=== PATIENT | male | born 1990 | race Caucasian/White ===

== ENCOUNTER 2021-01-24 23:34 | Inpatient (IN) | payer MEDICAID, SELFPAY ==
[2021-01-24 23:35] VITALS: BP 116/97; PULSE 92; RESP 16; TEMP 36.5; O2SAT 97; BMI 23.6
--- NOTE | 2021-01-24 23:57 | EKG12_ITS ---
Test Reason : Blood Pressure : / mmHG Vent. Rate : 068 BPM Atrial Rate : 068 BPM P-R Int : 178 ms QRS Dur : 118 ms QT Int : 406 ms P-R-T Axes : 070 104 059 degrees QTc Int : 431 ms Normal sinus rhythm with sinus arrhythmia Normal ECG Confirmed by CANDACE SARMIENTO, ESTEFANIA ([id number]), editor & co founder CHRISTINA ETIENNE ([id number]) on 01/27/2021 8:32:51 AM Referred By: HARPREET Confirmed By:ESTEFANIA MARIA MD
[2021-01-25] VITALS (9 sets, daily range): BP systolic 100–126; BP diastolic 68–85; PULSE 59–75; RESP 14–18; TEMP 36.5–37.1; O2SAT 94–99; BMI 19.2
[2021-01-25 00:28] LABS: Absolute Lymphocyte Count 1.48 X10^3/uL (0.83-4.51); Absolute Neutrophil Count 4.4 X10^3/uL (2.0-7.7); Basophil# 0.03 X10^3/uL; Basophil% 0.4 % (0-1); Eosinophil# 0.33 X10^3/uL; Eosinophils% 4.9 % (0-5); Hemoglobin 17.4 g/dL (13.0-16.5); Lymphocyte # 1.48 X10^3/ul (0.83-4.51); Lymphocyte % 22.2 % (19-41); Mean Corp Hgb Conc 34.8 g/dL (32-36); Mean Corpuscular Hgb 31.5 pg (27.0-32.0); Mean Corpuscular Volume 90.6 fL (80-94); Mean Platelet Vol. 9.7 fl (6.2-12.0); Monocyte# 0.46 X10^3/uL; Monocyte% 6.9 % (0-10); NRBC Flagged by Analyzer 0 % (0-5); Neutrophil # 4.36 X10^3/uL (2.7-7.7); Neutrophil % 65.5 % (47-70); Platelet Count 177 K/mm3 (150-450); RBC Distribution Width CV 11.6 % (11.6-14.6); RBC Distribution Width SD 38.7 fl (35.1-43.9); Red Blood Count 5.52 M/mm3 (4.6-6.2); White Blood Count 6.7 K/mm3 (4.4-11.0)
[2021-01-25 00:28] LABS: Amphetamine Urine VISTA NEGATIVE (<1000 ng/mL); Barbiturate Urine VISTA NEGATIVE (< 200 ng/mL); Benzodiazepine Urine VISTA NEGATIVE (< 200 ng/mL); Cocaine Urine VISTA NEGATIVE (< 300 ng/mL); Ecstacy Urine VISTA NEGATIVE (< 500 ng/mL); Methadone Urine VISTA NEGATIVE (< 300 ng/mL); PCP Urine VISTA NEGATIVE (< 25 ng/mL); THC Urine VISTA POSITIVE (< 50 ng/mL); Vista UDS pH Range 5
--- NOTE | 2021-01-25 00:29 | PCM.HP.STD ---
HPI - General General Date of Admission: 01/25/21 Date of Service: 01/25/21 Chief Complaint: Acute EtOH Withdrawal HPI Narrative The patient is a 30 y/o M w/ PMHx: Hepatitis C, Chronic back pain w/ Opiate Abuse Hx purchasing subutex on the stress (Hx IV heroin, clean since 09/2016), EtOH Abuse and BZD abuse (6 beers, 1 pint 80 proof liquor daily in addition to BZD 2-12 pills daily unclear type), Tobacco use who presents to the [facility] on 01/25/21 w/ impending acute EtOH withdrawal, onset starting on day of presentation with decreased intake following last EtOH intake ~ 20 minutes prior to presentation as well as last benzos earlier in the day with onset mild nausea, fatigue. Normally when he de-escalate off of alcohol only he also has nausea, emesis, tremors. Patient interested in attaining sober and clean status. Patient reportedly had recent hospitalization x 3 days with seizure activity, possibly alternate drug than xanax. Patient apparently uses 3-12 BZD pills daily. Work-up in the ED included T 97.7, heart rate 92, BP 116/97, respiratory rate 16, 97% on room air, CBC with WC 6.7, hemoglobin 17.4, platelet 177 without marked shift, CMP with potassium 3.4, glucose 63, total bilirubin 1.60 otherwise unremarkable hepatic profile, UDS with positive cannabis, ethyl alcohol 257. [facility] Medical History Alcohol abuse Benzodiazepine abuse, continuous Chronic neck pain Polysubstance abuse Tobacco use Home Medications gabapentin 800 mg PO TID 01/24/21 [History Last Taken 01/24/21] tizanidine [Zanaflex] 4 mg PO QHS 01/24/21 [History Last Taken 01/23/21] buprenorphine HCl [Subutex] 2 mg SUBLINGUAL DAILY 01/25/21 [History Last Taken 01/24/21] Allergy/AdvReac Type Severity Reaction Status Date / Time No Known Allergies Allergy Verified 01/24/21 23:38 Family History (Updated 01/25/21 @ 02:[address] Cherry Rothman MD) Mother Cancer Lung cancer. Father Cancer Lung cancer, passed. Surgical History History of appendectomy History of fusion of cervical spine Social History (Updated 01/25/21 @ 02:[address] Cherry Rothman MD) household members: significant other Smoking Status: Current every day smoker tobacco type: cigarettes Smoking packs per day: 1 Smoking cigarettes per day: 20.0 alcohol intake: current alcohol intake frequency: 3 or more drinks per day Alcohol type: beer and hard liquor details: Patient daily intake 6-12 beers and 1 pint 80 proof liquor. 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 ROS ROS Narrative Admission Review of Systems: CONSTITUTIONAL: No weight loss, fever, chills, + weakness or fatigue. HEENT: Eyes: No visual loss, blurred vision, double vision or yellow sclerae. Ears, Nose, Throat: No hearing loss, sneezing, congestion, runny nose or sore throat. SKIN: No rash or itching, lesions, wounds. CARDIOVASCULAR: No chest pain, chest pressure or chest discomfort, palpitations, edema, orthopnea, syncopal events. RESPIRATORY: No shortness of breath, cough or sputum, wheezing, hemoptysis. GASTROINTESTINAL: + anorexia, nausea, No vomiting or diarrhea, abdominal pain, melena, BRBPR. GENITOURINARY: No dysuria, frequency, urgency or retention. NEUROLOGICAL: No headache, dizziness, syncope, paralysis, ataxia, numbness or tingling in the extremities, focal weakness, change in bowel or bladder control, seizure. MUSCULOSKELETAL: + muscle, back pain, joint pain or stiffness. HEMATOLOGIC: No anemia, bleeding or bruising. LYMPHATICS: No enlarged nodes. No history of splenectomy. PSYCHIATRIC: No history of depression or anxiety. ENDOCRINOLOGIC: No reports of sweating, cold or heat intolerance. No polyuria or polydipsia. ALLERGIES: No history of asthma, hives, eczema or rhinitis. Vital Signs Vital Signs Vital Signs: 01/24/21 23:35 Temperature 97.7 F L Temperature Source Temporal Pulse Rate 92 Respiratory Rate 16 Blood Pressure 116/97 H Blood Pressure Mean 103 Pulse Ox 97 Oxygen Delivery Method Room Air Weight Weight: 155 lb Body Mass Index (BMI) 23.6 Physical Exam Narrative Physical Examination: General: Awake, alert, oriented x 3 and cooperative, seated upright in the ED bed, extremely fatigued, no acute distress. Skin: Normal color, normal turgor, no icterus, no cyanosis. HEENT: AT/NC, EOMI, PERRLA, dry MM, no carotid bruits or JVD noted. Lungs: Diminished breath sounds, greater bases, mildly decreased effort, no rales, ronchi or wheezing. Heart: Regular rate and rhythm; no gallop, rub audible. Abdomen: Soft, NTTP, ND, mildly hyperactive BS, no HSM. Extremities: No cyanosis, clubbing, or edema. Neurological: Patient awake, alert, oriented as noted, cognitive function appears baseline intact however notably fatigued; pupils equally reactive to light and accommodation, cranial nerves II-XII grossly normal, moving all 4 extremities, no focal deficits, strength mildly global decreased. Psychiatric: Affect appears fatigued, no acute evidence of depressive or anxiety feelings. Results Lab / Micro Data Result Diagrams: 01/25/21 00:10 01/25/21 00:10 Labs: Laboratory Results - last 24 hr 01/24/21 23:43: Urine Opiates Screen NEGATIVE, Urine Methadone Screen NEGATIVE, Ur Barbiturates Screen NEGATIVE, Ur Phencyclidine Scrn NEGATIVE, Ur Amphetamines Screen NEGATIVE, U Methamphetamin-MDMA NEGATIVE, U Benzodiazepines Scrn NEGATIVE, Urine Cocaine Screen NEGATIVE, U Cannabinoids Screen POSITIVE H, Ur Drug Screen Comment 01/25/21 00:10: WBC 6.7, RBC 5.52, Hgb 17.4 H, Hct 50.0, MCV 90.6, MCH 31.5, MCHC 34.8, RDW Std Deviation 38.7, RDW Coeff of Estuardo 11.6, Plt Count 177, MPV 9.7, Immature Gran % (Auto) 0.100, Neut % (Auto) 65.5, Lymph % (Auto) 22.2, [place] % (Auto) 6.9, Eos % (Auto) 4.9, Baso % (Auto) 0.4, Absolute Neuts (auto) 4.4, Absolute Lymphs (auto) 1.48, Nucleated RBC % 0 Assessment & Plan Assessment/Plan (1) Alcohol withdrawal: QUALIFIERS: Complication of substance-induced condition: uncomplicated Qualified Code(s): F10.230 - Alcohol dependence with withdrawal, uncomplicated (2) Benzodiazepine withdrawal: QUALIFIERS: Complication of substance-induced condition: uncomplicated Qualified Code(s): F13.230 - Sedative, hypnotic or anxiolytic dependence with withdrawal, uncomplicated PLAN: The patient is a 30 y/o M w/ PMHx: Hepatitis C, Chronic back pain w/ Opiate Abuse Hx purchasing subutex on the stress (Hx IV heroin, clean since 09/2016), EtOH Abuse and BZD abuse (6 beers, 1 pint 80 proof liquor daily in addition to BZD 2-12 pills daily unclear type), Tobacco use who presents to the [facility] on 01/25/21 w/ impending EtOH withdrawal and BZD withdrawal. 1. Impending Acute EtOH and BZD Withdrawal: Will admit to [facility], routine labs obtained in the ED upon presentation. Given interest in sobriety/clean status, will initiate and continue on protocol with taper course of ativan given concurrent BZD abuse history, scheduled gabapentin per home regimen, as needed Catapres, Bentyl, Vistaril, IV fluids, IV antiemetics, Tylenol as needed for pain. Will consult Case management for assistance for transition to next level of rehabilitation care. Mag, phos pending. Maintain on CIWA protocol concurrently. Patient will need consultation Tuesday with Dr. Horan given concurrent BZD abuse as will need prolonged taper regimen. 2. Chronic back pain with polysubstance abuse history: We will continue patient xanaflex q HS and gabapentin home regimen given this is prescribed. He does note have an active rx for subutex but has been purchasing off the street. Discussed options and at this time patient amenable to be initiated and continued on protocol with tapering course of Subutex given this status. 3. Tobacco Abuse: Encouraged cessation, inpatient consultation per RT, NR if desired. 4. DVT prophylaxis: Low risk, encourage ambulation. Charges/Coding Visit Charges Inpatient E&M: 82860 Init Hosp L3
--- NOTE | 2021-01-25 00:47 | EX.ED.SAOD ---
HPI History of Present Illness Chief Complaint: Substance Abuse Informant: patient Narrative Narrative: Patient is a 30-year-old male presenting for detox. Patient states she was late requesting detox from alcohol as well as Xanax. Patient drinks 6 pack of beer and a pint of 80 proof liquor daily. Last drink was about 20 minutes prior to arrival. He also takes 3-12 Xanax a day. He states he is not sure what he is been taking lately however because he had an overdose in [place], where he lives, and his urine drug screen was negative for Xanax. He states they are some type of tranquilizer. He also smokes marijuana regularly. He does use Subutex which he gets from the streets and does not have a prescription for. His last detox was 2 years ago. He has remote history of hepatitis C and IV drug use of is not used IV drugs for the past 4 years. Patient did present with his girlfriend for detox as well. No other complaints. Notes he has chronic neck pain which is unchanged. PFSH PFSH Medical History Alcohol abuse Benzodiazepine abuse, continuous Chronic neck pain Polysubstance abuse Tobacco use Home Medications gabapentin 800 mg PO TID 01/24/21 [History Last Taken 01/24/21] tizanidine [Zanaflex] 4 mg PO QHS 01/24/21 [History Last Taken 01/23/21] buprenorphine HCl [Subutex] 2 mg SUBLINGUAL DAILY 01/25/21 [History Last Taken 01/24/21] Allergy/AdvReac Type Severity Reaction Status Date / Time No Known Allergies Allergy Verified 01/24/21 23:38 Family History (Updated 01/25/21 @ 02:[address] Cherry Rothman MD) Mother Cancer Lung cancer. Father Cancer Lung cancer, passed. Surgical History History of appendectomy History of fusion of cervical spine Social History (Updated 01/25/21 @ 02:[address] Cherry Rothman MD) household members: significant other Smoking Status: Current every day smoker tobacco type: cigarettes Smoking packs per day: 1 Smoking cigarettes per day: 20.0 alcohol intake: current alcohol intake frequency: 3 or more drinks per day Alcohol type: beer and hard liquor details: Patient daily intake 6-12 beers and 1 pint 80 proof liquor. 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 ROS ROS ED Constitutional Constitutional ED: Denies chills, fever(s) or malaise Eyes Eyes: Denies blurry vision or loss of vision ENT ENT ED: Denies rhinorrhea or sore throat Cardiovascular Cardiovascular: Denies chest pain or dizziness Respiratory/Chest Respiratory/Chest: Denies cough or dyspnea Gastrointestinal Gastrointestinal: Denies nausea or vomiting Genitourinary Genitourinary ED: Denies dysuria or hematuria Musculoskeletal Musculoskeletal: Reports back pain and neck pain; Denies arthralgias or myalgias Integumentary Denies rash or wounds Neurologic Neurologic: Denies focal weakness or headache(s) Psychiatric Psychiatric: Reports other Details: Polysubstance abuse ; Denies anxiety, behavioral changes or depression EXAM Physical Exam Const Vital Signs: 01/24/21 23:35 Temperature 97.7 F L Temperature Source Temporal Pulse Rate 92 Respiratory Rate 16 Blood Pressure 116/97 H Blood Pressure Mean 103 Pulse Ox 97 Oxygen Delivery Method Room Air Positive well nourished, well developed and no apparent distress General Appearance ED: well developed HEENT Reports normocephalic atraumatic Nose: no nasal discharge External Ear: external ears normal Mouth ED: Yes moist mucous membranes normal Eyes PERRL and EOMs intact bilaterally Neck full ROM and no meningeal signs Chest Wall inspection of chest normal Resp normal respiratory effort and normal air movement Cardio regular rate and regular rhythm GI normal to inspection, nondistended, normoactive bowel sounds, soft to palpation, non-tender and non-distended Extremity normal to inspection and full ROM General Extremety ED: Negative for edema or tenderness General Extremity: Negative for edema Neuro oriented x3 and no focal motor deficits Neuro Narrative: Speech is slightly slurred. Sensorium / Orientation: alert Psych mental status grossly normal and thought process normal Skin no rashes or lesions noted and no wounds Lesions: no lesions Rashes: no rashes MDM MDM MDM Narrative Medical decision making narrative: Patient is evaluated for request of detox. He does appear mildly intoxicated with alcohol on my evaluation. He also is requesting detox from Xanax however it is not clear if he is actually been taking it. His benzodiazepine screen is negative. He is getting him off the street as well as Subutex. Patient is admitted for inpatient detox. He has no active signs of withdrawal at this time and I do not think requires any emergent medication in the emergency room. Lab Data Attestation: I reviewed the patient's lab results. Labs: Laboratory Results - last 24 hr 01/24/21 01/25/21 01/25/21 23:43 00:10 00:10 WBC 6.7 RBC 5.52 Hgb 17.4 H Hct 50.0 MCV 90.6 MCH 31.5 MCHC 34.8 RDW Std Deviation 38.7 RDW Coeff of Estuardo 11.6 Plt Count 177 MPV 9.7 Immature Gran % (Auto) 0.100 Neut % (Auto) 65.5 Lymph % (Auto) 22.2 [place] % (Auto) 6.9 Eos % (Auto) 4.9 Baso % (Auto) 0.4 Absolute Neuts (auto) 4.4 Absolute Lymphs (auto) 1.48 Nucleated RBC % 0 Sodium 140 Potassium 3.4 L Chloride 103 Carbon Dioxide 27.0 Anion Gap 10 BUN 17 Creatinine 1.28 Estim Creat Clear Calc 80.90 Est GFR (MDRD) Af Amer 84 Est GFR (MDRD) Non-Af 70 BUN/Creatinine Ratio 13.3 Glucose 63 L Calcium 8.9 Phosphorus Magnesium Total Bilirubin 1.60 H AST 19 ALT 29 Alkaline Phosphatase 80 Total Protein 8.0 Albumin 4.1 Globulin 3.9 Albumin/Globulin Ratio 1.1 Urine Opiates Screen NEGATIVE Urine Methadone Screen NEGATIVE Ur Barbiturates Screen NEGATIVE Ur Phencyclidine Scrn NEGATIVE Ur Amphetamines Screen NEGATIVE U Methamphetamin-MDMA NEGATIVE U Benzodiazepines Scrn NEGATIVE Urine Cocaine Screen NEGATIVE U Cannabinoids Screen POSITIVE H Ur Drug Screen Comment Ethyl Alcohol HIV 1&2 Antibody 01/25/21 01/25/21 01/25/21 00:10 00:10 00:10 WBC RBC Hgb Hct MCV MCH MCHC RDW Std Deviation RDW Coeff of Estuardo Plt Count MPV Immature Gran % (Auto) Neut % (Auto) Lymph % (Auto) [place] % (Auto) Eos % (Auto) Baso % (Auto) Absolute Neuts (auto) Absolute Lymphs (auto) Nucleated RBC % Sodium Potassium Chloride Carbon Dioxide Anion Gap BUN Creatinine Estim Creat Clear Calc Est GFR (MDRD) Af Amer Est GFR (MDRD) Non-Af BUN/Creatinine Ratio Glucose Calcium Phosphorus 3.6 Magnesium 2.2 Total Bilirubin AST ALT Alkaline Phosphatase Total Protein Albumin Globulin Albumin/Globulin Ratio Urine Opiates Screen Urine Methadone Screen Ur Barbiturates Screen Ur Phencyclidine Scrn Ur Amphetamines Screen U Methamphetamin-MDMA U Benzodiazepines Scrn Urine Cocaine Screen U Cannabinoids Screen Ur Drug Screen Comment Ethyl Alcohol 257.0 HIV 1&2 Antibody Non-Reactive Rhythm Strip Rhythm Strip: Sinus Rhythm Rate: 68 Ectopy: None EKG Initial EKG: Attestation: I personally reviewed and interpreted this EKG as follows: Interpretation: Sinus Rhythm Comments: Normal sinus rhythm at a rate of 68 Normal axis Normal intervals Normal ST segments Discharge Plan Dx/Rx/DC Orders Clinical Impression: Alcohol withdrawal, Benzodiazepine withdrawal Disposition Disposition: Acute Care Hospital [facility] Discharge Date/Time: 01/25/21 01:49
[2021-01-25 00:50] LABS: ALB/GLOB Ratio 1.1 RATIO (0.9-2.4); AST(SGOT) 19 U/L (15-37); Alanine Aminotransfer ALT/SGPT 29 U/L (16-61); Albumin, Serum 4.1 g/dL (3.2-5.0); Alkaline Phosphatase 80 U/L (45-117); Anion Gap 10 (5-15); BUN 17 mg/dL (7-18); BUN/Creat Ratio 13.3 RATIO (10-20); Calcium,Total 8.9 mg/dL (8.5-10.1); Chloride 103 mmol/L (98-107); Creatinine, Serum 1.28 mg/dL (0.70-1.30); EST Glomerular Filtration Rate 70 mL/min (>60); Est Glom Filt Rate - Afr Amer 84 mL/min (>60); Globulin 3.9 g/dL (2.2-4.2); Glucose 63 mg/dL (74-106); Potassium 3.4 mmol/L (3.5-5.1); Sodium Level 140 mmol/L (136-145)
[2021-01-25 01:21] LABS: Magnesium 2.2 mg/dL (1.6-2.6); Phosphorus 3.6 mg/dL (2.5-4.9)
--- NOTE | 2021-01-25 01:28 | ED.RN ---
180 called and made aware of patients being admitted
[2021-01-25 01:52] LABS: HIV - WCH Non-Reactive (Nonreactive)
[2021-01-25] MEDS: Potassium Chloride Oral Tablet 20 MEQ 40 MEQ PO (02:36)
[2021-01-25] MEDS: 0.9% Saline Lock 10 ML Syringe IV (02:36)
[2021-01-25] MEDS: LORazepam 1 MG Tablet 0.5 MG PO ×6 (02:36→22:16)
[2021-01-25] MEDS: Gabapentin 800 MG Tablet PO ×3 (02:36→22:16)
[2021-01-25] MEDS: Lactated Ringers 1,000 ML 125 ML IV (02:36)
--- NOTE | 2021-01-25 04:26 | PCS.PANDOC ---
PANDEMIC DOCUMENTATION INITIATED: Date: 01/12/2021 Time: 190
[2021-01-25] MEDS: Folic Acid 1 MG Tablet PO (08:14)
[2021-01-25] MEDS: Thiamine Hydrochloride 100 MG Tablet PO (08:14)
--- NOTE | 2021-01-25 12:54 | PCM.HOSP.N ---
Hospitalist Note The patient is admitted for medical stabilization for acute alcohol withdrawal syndrome. Patient also has history of chronic benzodiazepine use for last 3 months about Xanax 5 to 15 mg daily which is over the street, contaminated. Quit IV fentanyl in 2017 Patient is having mild tremors anxiety and restlessness. On buprenorphine and other supportive medications.
[2021-01-25] MEDS: Ibuprofen 600 MG Tablet PO ×2 (13:04→22:17)
[2021-01-25] MEDS: Methocarbamol 750 MG Tablet 1500 MG PO (14:16)
[2021-01-25] MEDS: hydrOXYzine PAM 25 MG Capsule 50 MG PO (14:16)
[2021-01-25] MEDS: Buprenorphine HCl 2 MG TAB.SUBL SL (19:10)
[2021-01-25] MEDS: Dicyclomine 10 MG Capsule 20 MG PO (22:16)
[2021-01-25] MEDS: tiZANidine HCl 2 MG Tablet 4 MG PO (22:16)
[2021-01-25] MEDS: Senna Tablet 2 TABLET PO (22:16)
[2021-01-26] VITALS (9 sets, daily range): BP systolic 102–119; BP diastolic 59–73; PULSE 47–72; RESP 14–16; TEMP 36.6–37; O2SAT 95–99
[2021-01-26] MEDS: LORazepam 1 MG Tablet 0.5 MG PO ×6 (03:00→22:24)
[2021-01-26] MEDS: Buprenorphine HCl 2 MG TAB.SUBL SL ×3 (03:00→18:27)
[2021-01-26] MEDS: Gabapentin 800 MG Tablet PO ×3 (06:02→22:24)
--- NOTE | 2021-01-26 08:55 | PN.HOSP_ITS ---
Objective Data Objective Data Patient was seen and examined. He complains of low back pain. This is not new. Denies any other complaints. Vital Signs: Vital Signs Temp Pulse Resp BP Pulse Ox 98.1 F 72 16 119/73 98 01/26/21 08:52 01/26/21 08:52 01/26/21 08:52 01/26/21 08:52 01/26/21 08:52 Oxygen Delivery Method Room Air Weight: 60.7 kg Body Mass Index (BMI) 19.2 Intake & Output: Intake and Output for Last 24 Hours 01/24/21 01/25/21 01/26/21 23:59 23:59 23:59 Intake Total 3600 / 3600 Balance 3600 / 3600 Medical Nutrition Assessment Dietitian: Malnutrition Criteria Met Start: 01/25/21 1 5:03 Freq: Status: Active Protocol: Document 01/25/21 15:04 RMA (Rec: 01/25/21 15:04 RMA [id number]) Nutrition Malnutrition Evidence of Malnutrition Exists Yes Malnutrition (severe): Social/Behavioral/ Environmental Evidenced By Suboptimal Energy Intake ( Severe),Weight Loss (Severe), Physical Changes (Moderate) Clinical Problem Chronic Disease or Condition Related Malnutrition Etiology Severe protein-calorie malnutrition in the context of social circumstance/ polysubstance abuse related to inadequate oral/energy intake Signs/Symptoms as evidenced by ~24% wt loss x past 1-2 years, 7-8% wt loss x past 1-2 months, ongoing poor intake meeting less than 50% estimated nutrition needs x past 1-3 months, need for ONS and visible signs of moderate muscle and fat wasting in the face, neck, arms and upper body. Status Active Problem Recommendation Dietitian Recommendations/Changes Continue Regular diet w/ 3 snacks per day as tolerated. Will add 240ml ensure enlive BID w/ breakfast and dinner for additional 700 calories and 40gm protein if consumed. Lab / Micro Data Result Diagrams: 01/25/21 00:10 01/25/21 00:10 Micro: Microbiology 01/24/21 23:10 Nasal Secretion SARS-CoV-2 Antigen (Rapid) - Final Rhythm Strip Rhythm Strip: Sinus Rhythm Rate: 68 Ectopy: None Physical Exam Narrative Physical exam: General: Alert, Oriented x3, Cooperative, No apparent distress, Well developed HEENT: Atraumatic Oral: Moist Mucosa Neck: Supple Lungs: Clear to auscultation Cardiovascular: HS I+II, regular, no murmurs Abdomen: Bowel Sounds Present, Soft, Non Tender Extremities: No edema Assessment & Plan Assessment/Plan (1) Alcohol withdrawal: QUALIFIERS: Complication of substance-induced condition: uncomplicated Qualified Code(s): F10.230 - Alcohol dependence with withdrawal, uncomplicated (2) Benzodiazepine withdrawal: QUALIFIERS: Complication of substance-induced condition: uncomplicated Qualified Code(s): F13.230 - Sedative, hypnotic or anxiolytic dependence with withdrawal, uncomplicated PLAN: 1. Acute alcohol withdrawal, continue on the Ativan withdrawal protocol 2. Acute opiate withdrawal, continue buprenorphine 3. Nicotine dependence, on replacement, advised to quit 4. Chronic back pain, continue on Zanaflex, courage to follow-up with pain management/primary care doctor for MRI of the low back Charges/Coding Visit Charges Inpatient E&M: 16067 Subs Hosp L2
[2021-01-26] MEDS: Thiamine Hydrochloride 100 MG Tablet PO (09:04)
[2021-01-26] MEDS: Ondansetron 8 MG Tablet PO (09:04)
[2021-01-26] MEDS: Folic Acid 1 MG Tablet PO (09:04)
[2021-01-26] MEDS: Dicyclomine 10 MG Capsule 20 MG PO ×2 (09:05→18:28)
[2021-01-26] MEDS: hydrOXYzine PAM 25 MG Capsule 50 MG PO ×3 (09:05→18:28)
[2021-01-26] MEDS: Methocarbamol 750 MG Tablet 1500 MG PO ×2 (09:05→18:28)
[2021-01-26] MEDS: Ibuprofen 600 MG Tablet PO ×2 (09:07→18:28)
--- NOTE | 2021-01-26 11:30 | ADDICTION ---
TW met with PT to complete the ASAM, AUDIT, DUDIT, MSE, Discharge plan and fill out ROIs. PT was alert and oriented x4, has no current/past SI/HI and was a willing and engaged participant. PT requested f/u appointments in his [place] ([facility]) for both addiction treatment and primary care. TW called several options for treatment, reviewed them with client, then had ROIs signed to make appointments. F/u appointments are at [facility] 01/28/2021 at 1PM and at [facility] for primary care with Dr. Hill on 01/29/2021 at 11:30AM. No transportation needs necessary. PT will need to d/c in the morning of 01/28 due to have a [address] to his 1PM appoinment.
--- NOTE | 2021-01-26 12:20 | CASEMGMT ---
RN CM in to pt room to provide a pamphlet of local healthcare directory per request of physician. Pt thankful and states that someone who was just in found his family doctor that he had as a little boy and the PCP is still practicing. Pt did still take pamphlet. Denies further needs.
[2021-01-26] MEDS: Acetaminophen 325 MG Tablet 650 MG PO (22:23)
[2021-01-26] MEDS: tiZANidine HCl 2 MG Tablet 4 MG PO (22:24)
[2021-01-27] VITALS (9 sets, daily range): BP systolic 90–119; BP diastolic 53–70; PULSE 50–70; RESP 12–16; TEMP 36.4–37.1; O2SAT 93–96
[2021-01-27] MEDS: LORazepam 1 MG Tablet 0.5 MG PO ×5 (02:26→22:35)
[2021-01-27] MEDS: Buprenorphine HCl 2 MG TAB.SUBL SL ×2 (02:27→18:52)
[2021-01-27] MEDS: Ibuprofen 600 MG Tablet PO ×2 (02:27→14:37)
[2021-01-27] MEDS: Gabapentin 800 MG Tablet PO ×3 (06:24→22:34)
[2021-01-27] MEDS: Folic Acid 1 MG Tablet PO (08:13)
[2021-01-27] MEDS: Thiamine Hydrochloride 100 MG Tablet PO (08:13)
--- NOTE | 2021-01-27 09:51 | PN.HOSP_ITS ---
Subjective Subjective Patient was seen and examined. No acute events overnight. Objective Data Objective Data Vital Signs: Vital Signs Temp Pulse Resp BP Pulse Ox 97.6 F L 70 12 100/57 L 93 01/27/21 04:19 01/27/21 08:06 01/27/21 04:19 01/27/21 04:19 01/27/21 07:39 Oxygen Delivery Method Room Air Weight: 60.7 kg Body Mass Index (BMI) 19.2 Intake & Output: Intake and Output for Last 24 Hours 01/25/21 01/26/21 01/27/21 23:59 23:59 23:59 Intake Total 3600 / 3600 Balance 3600 / 3600 Medical Nutrition Assessment Dietitian: Malnutrition Criteria Met Start: 01/25/21 15:03 Freq: Status: Active Protocol: Document 01/25/21 15:04 RMA (Rec: 01/25/21 15:04 RMA [id number]) Nutrition Malnutrition Evidence of Malnutrition Exists Yes Malnutrition (severe): Social/Behavioral/ Environmental Evidenced By Suboptimal Energy Intake ( Severe),Weight Loss (Severe), Physical Changes (Moderate) Clinical Problem Chronic Disease or Condition Related Malnutrition Etiology Severe protein-calorie malnutrition in the context of social circumstance/ polysubstance abuse related to inadequate oral/energy intake Signs/Symptoms as evidenced by ~24% wt loss x past 1-2 years, 7-8% wt loss x past 1-2 months, ongoing poor intake meeting less than 50% estimated nutrition needs x past 1-3 months, need for ONS and visible signs of moderate muscle and fat wasting in the face, neck, arms and upper body. Status Active Problem Recommendation Dietitian Recommendations/Changes Continue Regular diet w/ 3 snacks per day as tolerated. Will add 240ml ensure enlive BID w/ breakfast and dinner for additional 700 calories and 40gm protein if consumed. Lab / Micro Data Result Diagrams: 01/25/21 00:10 01/25/21 00:10 Micro: Microbiology 01/24/21 23:10 Nasal Secretion SARS-CoV-2 Antigen (Rapid) - Final Rhythm Strip Rhythm Strip: Sinus Rhythm Rate: 68 Ectopy: None Physical Exam Narrative Physical exam: General: Alert, Oriented x3, Cooperative, No apparent distress, Well developed HEENT: Atraumatic Oral: Moist Mucosa Neck: Supple Lungs: Clear to auscultation Cardiovascular: HS I+II, regular, no murmurs Abdomen: Bowel Sounds Present, Soft, Non Tender Extremities: No edema Assessment & Plan Assessment/Plan (1) Alcohol withdrawal: QUALIFIERS: Complication of substance-induced condition: uncomplicated Qualified Code(s): F10.230 - Alcohol dependence with withdrawal, uncomplicated (2) Benzodiazepine withdrawal: QUALIFIERS: Complication of substance-induced condition: uncom plicated Qualified Code(s): F13.230 - Sedative, hypnotic or anxiolytic dep endence with withdrawal, uncomplicated PLAN: 1. Acute alcohol withdrawal, continue on the Ativan withdrawal protocol 2. Acute opiate withdrawal, continue buprenorphine 3. Nicotine dependence, on replacement, advised to quit 4. Chronic back pain, continue on Zanaflex, courage to follow-up with pain management/primary care doctor for MRI of the low back Charges/Coding Visit Charges Inpatient E&M: 95447 Subs Hosp L2
[2021-01-27 11:53] LABS: AST(SGOT) 24 U/L (15-37); Alanine Aminotransfer ALT/SGPT 35 U/L (16-61); Albumin, Serum 3.3 g/dL (3.2-5.0); Alkaline Phosphatase 66 U/L (45-117); Anion Gap 1 (5-15); BUN 21 mg/dL (7-18); BUN/Creat Ratio 16.5 RATIO (10-20); Calcium,Total 8.7 mg/dL (8.5-10.1); Chloride 104 mmol/L (98-107); Creatinine, Serum 1.27 mg/dL (0.70-1.30); EST Glomerular Filtration Rate 70 mL/min (>60); Est Glom Filt Rate - Afr Amer 85 mL/min (>60); Estimated Creatinine Clearance 72.36 ml/min; Globulin 3.3 g/dL (2.2-4.2); Glucose 104 mg/dL (74-106); Potassium 3.7 mmol/L (3.5-5.1); Protein, Total 6.6 g/dL (6.4-8.2); Sodium Level 138 mmol/L (136-145)
[2021-01-27] MEDS: hydrOXYzine PAM 25 MG Capsule 50 MG PO (14:37)
[2021-01-27] MEDS: Ondansetron 8 MG Tablet PO (14:37)
[2021-01-27] MEDS: tiZANidine HCl 2 MG Tablet 4 MG PO (22:35)
[2021-01-27 22:44] LABS: HEPATITIS B SURFACE AG Negative (Negative); Hepatitis B Core Ab Total Negative (Negative); Hepatitis C Ab 0.2 s/co ratio (0.0-0.9)
[2021-01-27 22:45] LABS: Hep B Surface Antibodies Reactive (.)
[2021-01-28 02:30] VITALS: BP 107/57; PULSE 44; RESP 12; TEMP 37; O2SAT 96
[2021-01-28] MEDS: LORazepam 1 MG Tablet 0.5 MG PO (04:15)
[2021-01-28] MEDS: Buprenorphine HCl 2 MG TAB.SUBL SL (06:21)
[2021-01-28] MEDS: Gabapentin 800 MG Tablet PO (06:21)
[2021-01-28 08:06] VITALS: PULSE 60
[2021-01-28 08:08] VITALS: BP 103/72; PULSE 50; RESP 16; TEMP 36.6; O2SAT 94
[2021-01-28 08:15] VITALS: O2SAT 95
[2021-01-28] MEDS: Thiamine Hydrochloride 100 MG Tablet PO (08:16)
[2021-01-28] MEDS: Folic Acid 1 MG Tablet PO (08:16)
--- NOTE | 2021-01-28 08:58 | PCM.DC ---
Discharge Instructions Diet Discharge Diet: No restrictions Activity Discharge Activity: Return to Normal Activity Follow Up Care Test Results: Test results from this visit will be discussed in further detail at your follow-up appointment, if applicable. Discharge Plan Admission Admit Date/Time: 01/25/21 00:54 Primary Reason for Your Visit: Acute opioid withdrawal Attending Provider: Tiffani Luna Primary Care Provider: Beatriz Physician,No Primary Instructions Additional Instructions / Restrictions: You are strongly advised to continue to avoid use of opioids. You are also advised to stop smoking. Follow-up with your outpatient drug rehab program as scheduled. Discharge Orders/Prescriptions Prescriptions: New folic acid 1 mg Tablet 1 mg PO DAILY@0800 30 Days Qty: 30 RF: 0 Continued tizanidine [Zanaflex] 4 mg Tablet 4 mg PO QHS RF: 0 gabapentin 800 mg Tablet 800 mg PO TID RF: 0 Discontinued buprenorphine HCl [Subutex] 2 mg Tablet, Sublingual 2 mg SUBLINGUAL DAILY RF: 0 Referrals / Follow Up: Care Physician,No Primary [Primary Care Provider] - Within 2 Weeks Disposition Disposition (needs filled in before D/C Order can be placed): Home, Self Care
--- NOTE | 2021-01-28 09:02 | PCM.DC.SUM ---
Providers Date of Admission: 01/25/21 Date of Discharge: 01/28/21 Primary Care Physician: No Primary Care Phys Reason For Visit: ACUTE ETOH / BZD OPIATE WITHDRAWAL Diagnosis Discharge Diagnosis (1) Alcohol withdrawal: Status: Resolved Code(s): F10.239 - Alcohol dependence with withdrawal, unspecified Qualifiers: Complication of substance-induced condition: uncomplicated Qualified Code(s): F10.230 - Alcohol dependence with withdrawal, uncomplicated (2) Benzodiazepine withdrawal: Status: Resolved Code(s): F13.239 - Sedative, hypnotic or anxiolytic dependence with withdrawal, unspecified Qualifiers: Complication of substance-induced condition: uncomplicated Qualified Code(s): F13.230 - Sedative, hypnotic or anxiolytic dependence with withdrawal, uncomplicated (3) Severe protein-calorie malnutrition: Status: Chronic Code(s): E43 - Unspecified severe protein-calorie malnutrition Medications at Discharge Home Medications gabapentin 800 mg PO TID 01/24/21 tizanidine [Zanaflex] 4 mg PO QHS 01/24/21 folic acid 1 mg PO DAILY@0800 30 Days #30 tab 01/28/21 Hospital Course Operations None Procedures None Summary of Care Provided Minutes Spent on Discharge: 25 Hospital Course: 30y/o male with past medical history of hep C, chronic back pain, history of opioid abuse, who buys Subutex from the street, by 6 PSA 1.84 of liquor daily, who comes in requesting for medical stabilization from acute opioid and alcohol withdrawal. Patient was admitted to the MedSurg floor managed on both opioid and alcohol withdrawal protocol. There were no acute events. Seen by the behavioral counselor. He will follow-up in the outpatient on discharge. Physical Exam Narrative Physical exam: General: Alert, Oriented x3, Cooperative, No apparent distress, Well developed HEENT: Atraumatic Oral: Moist Mucosa Neck: Supple Lungs: Clear to auscultation Cardiovascular: HS I+II, regular, no murmurs Abdomen: Bowel Sounds Present, Soft, Non Tender Extremities: No edema Medical Records Data Medical Nutrition Assessment Dietitian: Malnutrition Criteria Met Start: 01/25/21 15:03 Freq: Status: Active Protocol: Document 01/25/21 15:04 RMA (Rec: 01/25/21 15:04 RMA [id number]) Nutrition Malnutrition Evidence of Malnutrition Exists Yes Malnutrition (severe): Social/Behavioral/ Environmental Evidenced By Suboptimal Energy Intake ( Severe),Weight Loss (Severe), Physical Changes (Moderate) Clinical Problem Chronic Disease or Condition Related Malnutrition Etiology Severe protein-calorie malnutrition in the context of social circumstance/ polysubstance abuse related to inadequate oral/energy intake Signs/Symptoms as evidenced by ~24% wt loss x past 1-2 years, 7-8% wt loss x past 1-2 months, ongoing poor intake meeting less than 50% estimated nutrition needs x past 1-3 months, need for ONS and visible signs of moderate muscle and fat wasting in the face, neck, arms and upper body. Status Active Problem Recommendation Dietitian Recommendations/Changes Continue Regular diet w/ 3 snacks per day as tolerated. Will add 240ml ensure enlive BID w/ breakfast and dinner for additional 700 calories and 40gm protein if consumed. Weight / BMI Weight Weight: 60.7 kg Body Mass Index (BMI) 19.2 ABG / Lab / Microbiology Data Result Diagrams: 01/25/21 00:10 01/27/21 11:14 Laboratory: Laboratory Results - last 24 hr 01/25/21 00:10: Hep Bs Antigen Negative, Hep Bs Antibody Reactive, Hep B Core Total Ab Negative, Hepatitis C Antibody 0.2, Hep C Ab Comment Comment 01/27/21 11:14: Sodium 138, Potassium 3.7, Chloride 104, Carbon Dioxide 33.0 H, Anion Gap 1 L, BUN 21 H, Creatinine 1.27, Estim Creat Clear Calc 72.36, Est GFR (MDRD) Af Amer 85, Est GFR (MDRD) Non-Af 70, BUN/Creatinine Ratio 16.5, Glucose 104, Calcium 8.7, Total Bilirubin 1.40 H, AST 24, ALT 35, Alkaline Phosphatase 66, Total Protein 6.6, Albumin 3.3, Globulin 3.3, Albumin/Globulin Ratio 1.0 Microbiology: Microbiology 01/24/21 23:10 Nasal Secretion SARS-CoV-2 Antigen (Rapid) - Final D/C Instructions Discharge Diet: No restrictions Meaningful Use Info Meaningful Use Diagnoses (Choose all that apply): None applicable Discharge Plan Admission Admit Date/Time: 01/25/21 00:54 Primary Reason for Your Visit: Acute alcohol/opioid withdrawal Attending Provider: Tiffani Luna Primary Care Provider: Care Physician,No Primary Instructions Additional Instructions / Restrictions: You are strongly advised to continue to avoid use of opioids. You are also advised to stop smoking. Follow-up with your outpatient drug rehab program as scheduled. Discharge Orders/Prescriptions Prescriptions: New folic acid 1 mg Tablet 1 mg PO DAILY@0800 30 Days Qty: 30 RF: 0 Continued tizanidine [Zanaflex] 4 mg Tablet 4 mg PO QHS RF: 0 gabapentin 800 mg Tablet 800 mg PO TID RF: 0 Discontinued buprenorphine HCl [Subutex] 2 mg Tablet, Sublingual 2 mg SUBLINGUAL DAILY RF: 0 Referrals / Follow Up: Care Physician,No Primary [Primary Care Provider] - Within 2 Weeks Disposition Disposition (needs filled in before D/C Order can be placed): Home, Self Care Charges/Coding Visit Charges Inpatient E&M: 85832 Disch Hosp
== END 2021-01-28 10:40 | disposition home or self-care (01) | DRG 775 ==
LOC: ED 01-25 00:56 → MS3 01-25 01:46
PROVIDERS: Admitting Provider Family Medicine; Emergency Provider Emergency Medicine; Visit Provider Internal Medicine
DX: F10.230 Alcohol dependence with withdrawal, uncomplicated (principal); F13.230 Sedative, hypnotic or anxiolytic dependence with withdrawal, uncomplicated; E43 Unspecified severe protein-calorie malnutrition; Z68.1 Body mass index [BMI] 19.9 or less, adult; F17.210 Nicotine dependence, cigarettes, uncomplicated; G89.29 Other chronic pain; M54.5 Low back pain
CPT/HCPCS: 36415; 80053; 80307; 82077; 83735; 84100; 85025; 86703; 86704; 86705; 86706; 86707; 86803; 87340; 87350; 87426; 93005; 99285; 99406; J7120; A4216

== ENCOUNTER 2022-04-19 12:09 | Observation (INO) | payer MEDICAID, SELFPAY ==
[2022-04-19 12:10] VITALS: BP 143/84; PULSE 80; RESP 18; TEMP 36.8; O2SAT 98; BMI 21.2
[2022-04-19 13:50] LABS: Amphetamine Urine VISTA NEGATIVE (<1000 ng/mL); Barbiturate Urine VISTA POSITIVE (< 200 ng/mL); Benzodiazepine Urine VISTA NEGATIVE (< 200 ng/mL); Cocaine Urine VISTA NEGATIVE (< 300 ng/mL); Ecstacy Urine VISTA POSITIVE (< 500 ng/mL); Methadone Urine VISTA NEGATIVE (< 300 ng/mL); PCP Urine VISTA NEGATIVE (< 25 ng/mL); THC Urine VISTA NEGATIVE (< 50 ng/mL); Vista UDS pH Range 5
[2022-04-19 16:10] VITALS: PULSE 89
--- NOTE | 2022-04-19 16:32 | EX.ED.SAOD ---
HPI <[facility] [place] - Last Filed: 04/19/22 18:56> History of Present Illness Chief Complaint: Substance Abuse Narrative Narrative: Patient presents today for detox from alcohol and fentanyl. His last drink was on the way here to the emergency department and he last used fentanyl via injection at 6 AM. Patient was here in December 2020 for detox from alcohol and Xanax. Patient states he began to use fentanyl 8 months ago after being 5 years clean from heroin. He uses fentanyl daily. Patient states he drinks half of 1/5 of whiskey per day and wakes up with tremors. He has had a withdrawal seizure from alcohol in the past. Patient denies any current health issues aside from chronic neck pain due to herniating a disc in 2018. He denies suicidal and homicidal ideations. [facility] <[facility] [place] - Last Filed: 04/19/22 18:56> [facility] Medical History (Updated 04/19/22 @ 17:39 by Charo Silverio) Alcohol abuse Asthma Benzodiazepine abuse, continuous Chronic neck pain Lumbar disc herniation Polysubstance abuse Tobacco use Umbilical hernia Home Medications gabapentin 800 mg tablet 800 mg PO TID neuropathy 01/24/21 [History Last Taken 1 Week Ago ~04/12/22] tizanidine 4 mg tablet (Zanaflex) 4 mg PO QHS muscle spasms 01/24/21 [History Last Taken 01/23/21] albuterol 90 mcg/actuation aerosol inhaler 90 mcg inhalation Q4H PRN PRN SOB 04/19/22 [History Last Taken 04/18/22] folic acid 1 mg tablet 1 mg PO DAILY@0800 supplement 04/19/22 [History Last Taken Unknown] Allergy/AdvReac Type Severity Reaction Status Date / Time No Known Allergies Allergy Verified 01/24/21 23:38 Family History Mother Cancer Lung cancer. Father Cancer Lung cancer, passed. Surgical History History of appendectomy History of fusion of cervical spine Social History household members: significant other Smoking Status: Current every day smoker tobacco type: cigarettes alcohol intake: current alcohol intake frequency: 3 or more drinks per day Alcohol type: beer and hard liquor details: Patient daily intake 6-12 beers and 1 pint 80 proof liquor. 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 ROS <[facility] [place] - Last Filed: 04/19/22 18:56> ROS ED Constitutional Constitutional ED: Denies chills, fever(s) or sweats Eyes Eyes: Denies blurry vision or change in vision ENT ENT ED: Reports rhinorrhea; Denies sore throat Cardiovascular Cardiovascular: Denies chest pain or palpitations Respiratory/Chest Respiratory/Chest: Reports cough; Denies dyspnea, shortness of breath at rest or shortness of breath with exertion Gastrointestinal Gastrointestinal: Denies abdominal pain, nausea or vomiting Musculoskeletal Musculoskeletal: Denies myalgias Integumentary Denies abscess, Abrasions or rash Neurologic Neurologic: Denies headache(s) or weakness Psychiatric Psychiatric: Reports anxiety EXAM <[place] [place] - Last Filed: 04/19/22 18:56> Physical Exam Const Vital Signs: 04/19/22 12:10 04/19/22 16:10 Temperature 98.3 F Temperature Source Temporal Pulse Rate 80 89 Respiratory Rate 18 Blood Pressure 143/84 H Blood Pressure Mean 103 Pulse Ox 98 Oxygen Delivery Method Room Air Positive well developed General Appearance ED: well developed HEENT Reports moist mucous membranes atraumatic Eyes PERRL and EOMs intact bilaterally Neck supple Resp normal respiratory effort and clear to auscultation bilaterally Cardio regular rate, regular rhythm and no murmurs GI soft to palpation, non-tender, non-distended and no masses Extremity Extremity Narrative: Tract grey visualized in left antecubital fossa. No abscess or signs of infection. Neuro oriented x3, CN's II-XII intact bilaterally and no sensory deficits noted Motor Exam: strength 5/5 throughout Psych mental status grossly normal and thought process normal Skin Rashes: no rashes <Dr. Ashok Mariano DO - Last Filed: 04/19/22 16:49> Physical Exam Const Vital Signs: 04/19/22 12:10 04/19/22 16:10 Temperature 98.3 F Temperature Source Temporal Pulse Rate 80 89 Respiratory Rate 18 Blood Pressure 143/84 H Blood Pressure Mean 103 Pulse Ox 98 Oxygen Delivery Method Room Air [facility] <[address] [place] - Last Filed: 04/19/22 18:56> [facility] Narrative Medical decision making narrative: Ecstasy and barbiturates positive on toxicology screen. Patient's vitals are stable and his labs are pending. He will be admitted for detox. Attending note: Patient seen and evaluated with human resource professional. I perform my own [id number] evaluation. I agree with the plan of work-up. Here for alcohol and fentanyl detox. He relapsed 8 months ago with both alcohol and started IV fentanyl. Years ago was using heroin IV. He drinks half of 1/5 of whiskey daily. He injects at least daily. He gets morning tremors. He had alcohol withdrawal seizure 18 months ago. He drank on the way here. He injected today. He was seen December of last year for alcohol detox which helped him. He denies homicidal suicidal ideations. Denies any medical history except had a cervical fusion from disc hernia in the past. Exam alert nontoxic cooperative clinically sober. Heart lungs are normal skin left elbow noted puncture grey, there is no drainage tenderness or surrounding erythema. Tox screen was resulted noted ecstasy and barbiturates. Alcohol pending. Vitals are stable. Labs are pending. Discussed with hospitalist service for admission. Lab Data Labs: Laboratory Results - last 24 hr 04/19/22 12:20 Urine Opiates Screen NEGATIVE Urine Methadone Screen NEGATIVE Ur Barbiturates Screen POSITIVE H Ur Phencyclidine Scrn NEGATIVE Ur Amphetamines Screen NEGATIVE MDMA (Ecstasy) Screen POSITIVE H U Benzodiazepines Scrn NEGATIVE Urine Cocaine Screen NEGATIVE U Cannabinoids Screen NEGATIVE Ur Drug Screen Comment <Dr. Ashok Mariano, DO - Last Filed: 04/19/22 16:49> [facility] Narrative Medical decision making narrative: Attending note: Patient seen and evaluated with human resource professional. I perform my own [id number] evaluation. I agree with the plan of work-up. Here for alcohol and fentanyl detox. He relapsed 8 months ago with both alcohol and started IV fentanyl. Years ago was using heroin IV. He drinks half of 1/5 of whiskey daily. He injects at least daily. He gets morning tremors. He had alcohol withdrawal seizure 18 months ago. He drank on the way here. He injected today. He was seen December of last year for alcohol detox which helped him. He denies homicidal suicidal ideations. Denies any medical history except had a cervical fusion from disc hernia in the past. Exam alert nontoxic cooperative clinically sober. Heart lungs are normal skin left elbow noted puncture grey, there is no drainage tenderness or surrounding erythema. Talk screen was resulted noted ecstasy and barbiturates. Alcohol pending. Vitals are stable. Labs are pending. Discussed with hospitalist service for admission. Lab Data Attestation: I reviewed the patient's lab results. Labs: Laboratory Results - last 24 hr 04/19/22 12:20 Urine Opiates Screen NEGATIVE Urine Methadone Screen NEGATIVE Ur Barbiturates Screen POSITIVE H Ur Phencyclidine Scrn NEGATIVE Ur Amphetamines Screen NEGATIVE MDMA (Ecstasy) Screen POSITIVE H U Benzodiazepines Scrn NEGATIVE Urine Cocaine Screen NEGATIVE U Cannabinoids Screen NEGATIVE Ur Drug Screen Comment Discharge Plan Dx/Rx/DC Orders Clinical Impression: Alcohol dependence, Opiate dependence, History of seizure due to alcohol withdrawal Disposition Disposition: Acute Care Hospital [facility] Discharge Date/Time: 04/19/22 18:52
[2022-04-19 16:40] VITALS: BP 135/99; PULSE 88; RESP 15; TEMP 36.2; O2SAT 99
[2022-04-19 16:55] LABS: Absolute Lymphocyte Count 1.49 X10^3/uL (0.83-4.51); Absolute Neutrophil Count 3.2 X10^3/uL (2.0-7.7); Basophil# 0.03 X10^3/uL; Basophil% 0.5 % (0-1); Eosinophil# 0.37 X10^3/uL; Eosinophils% 6.8 % (0-5); Hematocrit 46.3 % (40-54); Hemoglobin 16.2 g/dL (13.0-16.5); Lymphocyte # 1.49 X10^3/ul (0.83-4.51); Lymphocyte % 27.3 % (19-41); Mean Corpuscular Hgb 32.1 pg (27.0-32.0); Mean Corpuscular Volume 91.9 fL (80-94); Mean Platelet Vol. 9.2 fl (6.2-12.0); Monocyte# 0.37 X10^3/uL; Monocyte% 6.8 % (0-10); NRBC Flagged by Analyzer 0 % (0-5); Neutrophil # 3.19 X10^3/uL (2.7-7.7); Neutrophil % 58.4 % (47-70); Platelet Count 205 K/mm3 (150-450); RBC Distribution Width CV 12.7 % (11.6-14.6); RBC Distribution Width SD 42.5 fl (35.1-43.9); Red Blood Count 5.04 M/mm3 (4.6-6.2); White Blood Count 5.5 K/mm3 (4.4-11.0)
[2022-04-19 17:06] LABS: Anion Gap 7 (5-15); BUN 11 mg/dL (7-18); BUN/Creat Ratio 12.5 RATIO (10-20); Calcium,Total 9.3 mg/dL (8.5-10.1); Chloride 101 mmol/L (98-107); Creatinine, Serum 0.88 mg/dL (0.70-1.30); EST Glomerular Filtration Rate 107 mL/min (>60); Est Glom Filt Rate - Afr Amer 129 mL/min (>60); Estimated Creatinine Clearance 108.24 ml/min; Glucose 65 mg/dL (74-106); Potassium 3.7 mmol/L (3.5-5.1); Sodium Level 140 mmol/L (136-145)
--- NOTE | 2022-04-19 17:21 | CM.ED ---
AMY Note Referral Source: [facility] Referral Reason: AIMEE REYES met with patient. He resides in [facility]. Patient's is 1990. Patient was previously in [facility] program. Patient drank 2-[address] to [facility]. Patient reports use of fentanyl with the amount he uses varies anywhere from 1/2gram to as much as I can get my hands on. Patient said that he understands the rules of the ramp program which include no outside food, visitors and belongings are secured. Patient reports that he was previously at [facility] for detox from alcohol and Xanax. Patient was asked if he is linked with outpatient AOD/MH provider and he said that he has something set for a Tuesday at [facility] in [place] on Tuesday. SW asked if patient was linked with provider when he was previously at the [facility] program and patient said that he didn't think so but I was not thinking clearly. AMY called Kavin, Water Quality Control Engineer, and updated her on patient's admission to [facility]. AMY called Power Lineman, Asher, and advised that patient and his are both in the ED for treatment but have to be placed on separate floors for [facility] admission. Plan: AIMEE CERVANTES
[2022-04-19 18:52] VITALS: BMI 21.2
[2022-04-19] MEDS: Phenobarbital 32.4 MG Tablet 64.8 MG PO ×2 (19:08→22:10)
--- NOTE | 2022-04-19 21:10 | HP.PCM.HOS_ITS ---
HPI - General General Date of Admission: 04/19/22 Date of Service: 04/19/22 Chief Complaint: Request for alcohol and opiate detox services HPI Narrative IRIS CLARK, is a 31 M who presents to the emergency room at [facility] requesting services for opioid and alcohol detox, patient states he drinks about 1/5 of whiskey a day along with a 12 pack of beer and he also injects what he believes is fentanyl. Patient was in a detox program a week and a half ago in [facility], he states he checked himself out of the program after 2 days, he came here because he has been in the program here before for detox services. Nursing also stated to me today that the patient stated that his girlfriend was coming up here also at the same time to go through detox services at this hospital. Patient complains of slight nervousness at this time, he has no muscle pain, diarrhea, abdominal cramping, or nausea. Talk screen was positive for barbiturates and MDMA. Patient's alcohol level was 30. Patient states he last had anything to drink right before he came to the ER today, he last injected fentanyl earlier today. [facility] Medical History (Updated 04/19/22 @ 17:39 by Charo Silverio) Alcohol abuse Asthma Benzodiazepine abuse, continuous Chronic neck pain Lumbar disc herniation Polysubstance abuse Tobacco use Umbilical hernia Home Medications gabapentin 800 mg tablet 800 mg PO TID neuropathy 01/24/21 [History Last Taken 1 Week Ago ~04/12/22] tizanidine 4 mg tablet (Zanaflex) 4 mg PO QHS muscle spasms 01/24/21 [History Last Taken 01/23/21] albuterol 90 mcg/actuation aerosol inhaler 90 mcg inhalation Q4H PRN PRN SOB 04/19/22 [History Last Taken 04/18/22] folic acid 1 mg tablet 1 mg PO DAILY@0800 supplement 04/19/22 [History Last Taken Unknown] Allergy/AdvReac Type Severity Reaction Status Date / Time No Known Allergies Allergy Verified 01/24/21 23:38 Family History Mother Cancer Lung cancer. Father Cancer Lung cancer, passed. Surgical History History of appendectomy History of fusion of cervical spine Social History household members: significant other Smoking Status: Current every day smoker tobacco type: cigarettes alcohol intake: current alcohol intake frequency: 3 or more drinks per day Alcohol type: beer and hard liquor details: Patient daily intake 6-12 beers and 1 pint 80 proof liquor. 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 ROS Constitutional Constitutional: Denies anorexia, change in weight, chills, fatigue, fever(s), night sweats or weakness Eyes Eyes: Denies blurry vision, change in vision, discharge from eye(s) or eye pain ENT HEENT: Denies dysphagia or ear pain Cardiovascular Cardiovascular: Denies chest pain, claudication, dyspnea on exertion, edema, lightheadedness or palpitations Respiratory/Chest Respiratory/Chest: Denies cough, excessive phlegm production, hemoptysis, productive cough, shortness of breath at rest or shortness of breath with exertion Gastrointestinal Gastrointestinal: Denies abdominal pain, coffee ground emesis, constipation, diarrhea, dyspepsia, hematemesis, hematochezia, melena, nausea or vomiting Genitourinary Genitourinary: Denies difficulty urinating, dysuria, hematuria, nocturia, urinary frequency, urinary hesitancy, urinary incontinence or urinary urgency Musculoskeletal Musculoskeletal: Denies back pain, joint pain, joint stiffness, joint swelling, myalgias or neck pain Neurologic Neurologic: Denies abnormal gait, abnormal speech, confusion, disequilibrium, dizziness, focal weakness, headache(s), loss of vision, numbness, other visual disturbances, paresthesias, syncope or tingling Psychiatric Psychiatric: Reports irritability; Denies anxiety, cognitive impairment, depression, mood swings or suicidal ideation Endocrine Endocrinology: Denies change in body appearance, cold intolerance, excessive sweating, heat intolerance, polydipsia or polyuria Hematologic/Lymphatic Hematologic/Lymphatic: Denies none, anemia, easy bleeding, easy bruising or lymphadenopathy Allergic/Immunologic Allergic/Immunologic: Denies rhinitis, urticaria, eczemia or asthma Vital Signs Vital Signs Vital Signs: 04/19/22 12:10 04/19/22 16:40 04/19/22 16:10 Temperature 98.3 F 97.2 F L Temperature Source Temporal Temporal Pulse Rate 80 88 89 Respiratory Rate 18 15 Blood Pressure 143/84 H 135/99 H Blood Pressure Mean 103 111 Pulse Ox 98 99 Oxygen Delivery Method Room Air Room Air Weight Weight: 63.5 kg Body Mass Index (BMI) 21.2 Physical Exam Const alert, oriented x3, no apparent distress and average body habitus General Appearance: cooperative, well kempt and well developed Orientation / Consciousness: awake, oriented to person, oriented to place and oriented to time HEENT normocephalic, head/scalp atraumatic, hearing grossly normal bilaterally and moist oral mucous membranes Eyes PERRL, EOMs intact bilaterally and conjunctivae normal Neck supple, no JVD, thyroid normal and no carotid bruits General: trachea midline Resp normal respiratory effort, no retractions, no use of accessory muscles and clear to auscultation bilaterally Auscultation: Negative for rales, rhonchi or wheezes Cardio regular rate, regular rhythm, S1 normal heart sound, S2 normal heart sound, no murmurs, no rub and no gallops GI normal to inspection, nondistended, normoactive bowel sounds, soft to palpation, non-tender and non-distended Extremity no clubbing, cyanosis or edema Skin no rashes or lesions noted General Skin Exam: no breakdown Neuro oriented x3, CN's II-XII intact bilaterally, no focal motor deficits and no sensory deficits noted Sensorium / Orientation: awake and alert Speech: speech normal Psych affect normal Psych Narrative: Patient does not appear to be anxious, agitated, or inebriated. Results Lab / Micro Data Result Diagrams: 04/19/22 16:40 04/19/22 16:40 Labs: Laboratory Results - last 24 hr 04/19/22 12:20: Urine Opiates Screen NEGATIVE, Urine Methadone Screen NEGATIVE, Ur Barbiturates Screen POSITIVE H, Ur Phencyclidine Scrn NEGATIVE, Ur Amphetamines Screen NEGATIVE, MDMA (Ecstasy) Screen POSITIVE H, U Benzodiazepines Scrn NEGATIVE, Urine Cocaine Screen NEGATIVE, U Cannabinoids Screen NEGATIVE, Ur Drug Screen Comment 04/19/22 16:40: WBC 5.5, RBC 5.04, Hgb 16.2, Hct 46.3, MCV 91.9, MCH 32.1 H, MCHC 35.0, RDW Std Deviation 42.5, RDW Coeff of Estuardo 12.7, Plt Count 205, MPV 9.2, Immature Gran % (Auto) 0.200, Neut % (Auto) 58.4, Lymph % (Auto) 27.3, [place] % (Auto) 6.8, Eos % (Auto) 6.8 H, Baso % (Auto) 0.5, Absolute Neuts (auto) 3.2, Absolute Lymphs (auto) 1.49, Nucleated RBC % 0 04/19/22 16:40: Sodium 140, Potassium 3.7, Chloride 101, Carbon Dioxide 32.0, Anion Gap 7, BUN 11, Creatinine 0.88, Estim Creat Clear Calc 108.24, Est GFR (MDRD) Af Amer 129, Est GFR (MDRD) Non-Af 107, BUN/Creatinine Ratio 12.5, Glucose 65 L, Calcium 9.3 04/19/22 16:40: Ethyl Alcohol 30.0 Assessment & Plan Assessment/Plan (1) Alcohol dependence: PLAN: Plan 1. 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
[2022-04-19 22:00] VITALS: BP 100/58; PULSE 74; RESP 18; TEMP 37.2; O2SAT 93
[2022-04-19] MEDS: tiZANidine HCl 2 MG Tablet 4 MG PO (22:10)
[2022-04-19] MEDS: Gabapentin 800 MG Tablet PO (22:10)
[2022-04-19] MEDS: Polyethylene Glycol 3350 17 GM PACKET PO (22:44)
[2022-04-20 03:42] VITALS: BP 98/62; PULSE 86; RESP 18; TEMP 37.2; O2SAT 93
[2022-04-20] MEDS: Phenobarbital 32.4 MG Tablet 64.8 MG PO ×6 (03:45→22:09)
[2022-04-20] MEDS: Gabapentin 800 MG Tablet PO (06:45)
--- NOTE | 2022-04-20 07:57 | PCM.PN.HOSP ---
Subjective Subjective Feels okay. No new events. Objective Data Objective Data Vital Signs: Vital Signs Temp Pulse Resp BP Pulse Ox O2 Del Method 37.2 C 86 18 98/62 93 Room Air 04/20/22 03:42 04/20/22 03:42 04/20/22 03:42 04/20/22 03:42 04/20/22 03:42 04/20/22 03:42 Oxygen Delivery Method Room Air Weight: 63.5 kg Body Mass Index (BMI) 21.2 Lab / Micro Data Result Diagrams: 04/19/22 16:40 04/19/22 16:40 Labs: Laboratory Results - last 24 hr 04/19/22 12:20: Urine Opiates Screen NEGATIVE, Urine Methadone Screen NEGATIVE, Ur Barbiturates Screen POSITIVE H, Ur Phencyclidine Scrn NEGATIVE, Ur Amphetamines Screen NEGATIVE, MDMA (Ecstasy) Screen POSITIVE H, U Benzodiazepines Scrn NEGATIVE, Urine Cocaine Screen NEGATIVE, U Cannabinoids Screen NEGATIVE, Ur Drug Screen Comment 04/19/22 16:40: WBC 5.5, RBC 5.04, Hgb 16.2, Hct 46.3, MCV 91.9, MCH 32.1 H, MCHC 35.0, RDW Std Deviation 42.5, RDW Coeff of Estuardo 12.7, Plt Count 205, MPV 9.2, Immature Gran % (Auto) 0.200, Neut % (Auto) 58.4, Lymph % (Auto) 27.3, Banner % (Auto) 6.8, Eos % (Auto) 6.8 H, Baso % (Auto) 0.5, Absolute Neuts (auto) 3.2, Absolute Lymphs (auto) 1.49, Nucleated RBC % 0 04/19/22 16:40: Sodium 140, Potassium 3.7, Chloride 101, Carbon Dioxide 32.0, Anion Gap 7, BUN 11, Creatinine 0.88, Estim Creat Clear Calc 108.24, Est GFR (MDRD) Af Amer 129, Est GFR (MDRD) Non-Af 107, BUN/Creatinine Ratio 12.5, Glucose 65 L, Calcium 9.3 04/19/22 16:40: Ethyl Alcohol 30.0 Physical Exam Const alert and no apparent distress HEENT head/scalp atraumatic Neuro Sensorium / Orientation: awake and alert Assessment & Plan Assessment/Plan (1) Alcohol dependence: PLAN: Drinks 12 pack of beer as well as 1/5 of whiskey per day. Last consumption of alcohol was the 20th Patient has been started on phenobarbital taper Thiamine and folate Addiction medicine to facilitate outpatient programs Apparently patient just left AGAINST MEDICAL ADVICE from another program and is actually here with his girlfriend. Patient will follow-up with [facility]. 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 As gabapentin is known to enhance the highs with opiates, I am skeptical of this diagnosis of neuropathy particular in someone that is only 31 years old. We will discontinue the gabapentin Charges/Coding Visit Charges Inpatient E&M: 02431 Subs Hosp L1
[2022-04-20 08:24] VITALS: BP 111/76; PULSE 100; RESP 16; TEMP 36.9; O2SAT 93
[2022-04-20] MEDS: Folic Acid 1 MG Tablet PO (08:35)
[2022-04-20] MEDS: Thiamine Hydrochloride 100 MG Tablet PO (08:35)
[2022-04-20] MEDS: Polyethylene Glycol 3350 17 GM PACKET PO (10:25)
--- NOTE | 2022-04-20 11:19 | ADDICTION ---
This personal lines underwriter met with PT to conduct ASAM, MSE, AUDIT, DUDIT assessments and to plan for d/c. PT A+Ox4 and participated actively. All assessments completed and placed in PT's chart. PT plans to f/u with [facility] for follow-up outpatient treatment and MAT services. PT did not indicate a need for transportation post d/c from [facility].
[2022-04-20 14:57] VITALS: BP 126/92; PULSE 84; RESP 16; TEMP 36.9; O2SAT 94
--- NOTE | 2022-04-20 16:50 | CHAPLAIN ---
Type of Pastoral Visit _x__ Initial Visit ___ Follow-up Visit ___ On-call Visit ___ General Patient Visit ___ Spiritual Assessment ___ Family Conference ___ Bereavement ___ Rapid Response ___ Code Blue ___ Other (describe below) Pastoral Care Referral From _x__ Patient ___ Family ___ Nurse ___ Physician ___ Construction Helper ___ Curer Foam [employer]ber ___ Other (describe below) Sacrament/Intervention _x__ Active listening ___ Anointing ___ Confucianist ___ Bereavement ___ Communion _x__ Anjana exploration ___ _x__ Life review _x__ Prayer ___ Reconciliation ___ Sacrament of Sick _x__ Supportive presence ___ Wedding ___ Other (describe below) Pastoral Comments lots of review of life, family, current support, anjana beliefs, and future hopes and plans; pt would like a follow up visit tomorrow; pt welcomed someone to talk with and acknowledged his vulnerability for relapse; pt is considering an inpatient rehab program after leaving the hospital; pt says that he prays daily but has not been in mandaeism or know much about God; pt main support in life was his grandmother who several years ago; pt lives with a SO who also has addiction issues
[2022-04-20 18:12] VITALS: BP 135/99; PULSE 86; RESP 16; TEMP 37.1; O2SAT 97
[2022-04-20] MEDS: Buprenorphine HCl 2 MG TAB.SUBL SL (18:39)
[2022-04-20] MEDS: cloNIDine HCl 0.1 MG Tablet PO (20:12)
[2022-04-20] MEDS: 0.9% Saline Lock 10 ML Syringe IV ×3 (20:17→22:26)
[2022-04-20] MEDS: LORazepam 2 MG/ML Syringe IV ×3 (20:17→22:26)
[2022-04-20] MEDS: tiZANidine HCl 2 MG Tablet 4 MG PO (21:04)
[2022-04-20] MEDS: Haloperidol Lactate 5 MG/ML Vial 4 MG IM (23:08)
--- NOTE | 2022-04-20 23:41 | NURSING ---
Pt here for opiate and alcohol detox. He began buprenorphine at 1900, this pushed him into precipitous withdrawal. Ativan was given q1h x3, clonidine was given, scheduled phenobarb was given, Hospitalist notified, x1 Haldol order, medication given but not effective. Order was given to transfer to transfer to ICU for further care.
[2022-04-21] VITALS (32 sets, daily range): BP systolic 79–137; BP diastolic 54–93; PULSE 54–98; RESP 14–76; TEMP 36–36.7; O2SAT 16–98
[2022-04-21] MEDS: LORazepam 2 MG/ML Syringe IV ×3 (00:34→05:09)
--- NOTE | 2022-04-21 00:48 | NURSING ---
Pt remains very agitated. moving legs nonstop. presidex drip started.
--- NOTE | 2022-04-21 01:30 | NURSING ---
pt conts to be very restless. Pt talking about taking a fishing pool from [employer]. Pt legs moving nonstop. presidex drip conts
[2022-04-21] MEDS: Buprenorphine HCl 2 MG TAB.SUBL SL ×3 (02:00→18:03)
[2022-04-21] MEDS: Phenobarbital 32.4 MG Tablet 64.8 MG PO ×6 (02:00→23:28)
--- NOTE | 2022-04-21 05:13 | NURSING ---
diaper put on pt. Pt became agitated. ativan ivp given. increased presidex to 1.4
--- NOTE | 2022-04-21 07:06 | PN.HOSP_ITS ---
Subjective Subjective Became agitated overnight and received several rounds of lorazepam. Despite that, patient was very agitated and required transfer to the intensive care unit and has been started on a dexmedetomidine gtt. Objective Data Objective Data Vital Signs: Vital Signs Temp Pulse Resp BP Pulse Ox O2 Del Method 36.4 C L 76 26 H 110/81 H 92 Room Air 04/21/22 03:41 04/21/22 06:25 04/21/22 06:25 04/21/22 06:25 04/21/22 06:25 04/21/22 06:25 Oxygen Delivery Method Room Air Weight: 57.3 kg Body Mass Index (BMI) 21.2 Intake & Output: Intake and Output for Last 24 Hours 04/19/22 04/20/22 04/21/22 23:59 23:59 23:59 Intake Total 201.53 / 201.53 Output Total 100 / 100 Balance 101.53 / 101.53 Lab / Micro Data Result Diagrams: 04/19/22 16:40 04/19/22 16:40 Physical Exam Const alert and no apparent distress HEENT head/scalp atraumatic Resp normal respiratory effort, no retractions, no use of accessory muscles and clear to auscultation bilaterally Cardio regular rate, regular rhythm, S1 normal heart sound and S2 normal heart sound GI normal to inspection, nondistended, normoactive bowel sounds, soft to palpation, non-tender and non-distended Extremity normal to inspection Assessment & Plan Assessment/Plan (1) Alcohol withdrawal: PLAN: Drinks 12 pack of beer as well as 1/5 of whiskey per day. Last consumption of alcohol was the Apparently patient just left AGAINST MEDICAL ADVICE from another program and is actually here with his girlfriend. Patient will follow-up with [facility]. 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 As gabapentin is known to enhance the highs with opiates, I am skeptical of this diagnosis of neuropathy particular in someone that is only 31 years old. We will discontinue the gabapentin Charges/Coding Visit Charges Inpatient E&M: 66729 Subs Hosp L2
[2022-04-21] MEDS: Folic Acid 1 MG Tablet PO (09:57)
[2022-04-21] MEDS: Polyethylene Glycol 3350 17 GM PACKET PO (09:57)
[2022-04-21] MEDS: Thiamine Hydrochloride 100 MG Tablet PO (09:57)
[2022-04-21] MEDS: Acetaminophen 500 MG Tablet PO (20:13)
[2022-04-21] MEDS: Ibuprofen 600 MG Tablet PO (20:13)
[2022-04-21] MEDS: tiZANidine HCl 2 MG Tablet 4 MG PO (23:28)
[2022-04-22] VITALS (18 sets, daily range): BP systolic 83–114; BP diastolic 55–80; PULSE 52–93; RESP 17–22; TEMP 36.6; O2SAT 92–100
[2022-04-22] MEDS: Phenobarbital 32.4 MG Tablet 64.8 MG PO ×3 (03:10→15:50)
[2022-04-22] MEDS: Buprenorphine HCl 2 MG TAB.SUBL SL ×2 (03:10→10:37)
--- NOTE | 2022-04-22 06:53 | PN.HOSP_ITS ---
Subjective Subjective Feels better. Objective Data Objective Data Vital Signs: Vital Signs Temp Pulse Resp BP Pulse Ox O2 Del Method 36.6 C 57 L 21 H 94/60 96 Room Air 04/22/22 04:00 04/22/22 06:00 04/22/22 06:00 04/22/22 06:00 04/22/22 06:00 04/22/22 06:00 Oxygen Delivery Method Room Air Weight: 58.6 kg Body Mass Index (BMI) 21.2 Intake & Output: Intake and Output for Last 24 Hours 04/20/22 04/21/22 04/22/22 23:59 23:59 23:59 Intake Total 503.96 / 1221.46 1504.33 / 1504.33 Output Total 100 / 475 1375 / 1375 Balance 403.96 / 746.46 129.33 / 129.33 Lab / Micro Data Result Diagrams: 04/19/22 16:40 04/19/22 16:40 Physical Exam Const alert and no apparent distress Resp normal respiratory effort, no retractions and no use of accessory muscles Cardio regular rate, regular rhythm, S1 normal heart sound and S2 normal heart sound GI normal to inspection, nondistended, normoactive bowel sounds and soft to palpation Neuro Sensorium / Orientation: awake and alert Assessment & Plan Assessment/Plan (1) Alcohol withdrawal: PLAN: Drinks 12 pack of beer as well as 1/5 of whiskey per day. Last consumption of alcohol was the Apparently patient just left AGAINST MEDICAL ADVICE from another program and is actually here with his girlfriend. Patient will follow-up with [facility]. Worse on the night of the she requiring Dexmedetomidine gtt. Still on dexmedetomidine gtt able to be weaned. 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 As gabapentin is known to enhance the highs with opiates, I am skeptical of this diagnosis of neuropathy particular in someone that is only 31 years old. We will discontinue the gabapentin Pt gave me perissoin to speak with his girlfriend, Ms. Hopper, who is here for withdrawal treatment and update on his condition. Charges/Coding Visit Charges Inpatient E&M: 64819 Subs Hosp L2
[2022-04-22] MEDS: Thiamine Hydrochloride 100 MG Tablet PO (10:38)
[2022-04-22] MEDS: Polyethylene Glycol 3350 17 GM PACKET PO (10:38)
[2022-04-22] MEDS: Folic Acid 1 MG Tablet PO (10:38)
--- NOTE | 2022-04-22 16:26 | PCM.DC.SUM ---
Providers Date of Admission: 04/19/22 Primary Care Physician: No Primary Care Phys Reason For Visit: OPIATE DETOX Diagnosis Discharge Diagnosis (1) Alcohol withdrawal: Status: Acute Code(s): F10.939 - Alcohol use, unspecified with withdrawal, unspecified Plan: Drinks 12 pack of beer as well as 1/5 of whiskey per day. Last consumption of alcohol was the Apparently patient just left AGAINST MEDICAL ADVICE from another program and is actually here with his girlfriend. Patient will follow-up with [facility]. Worse on the night of the she requiring Dexmedetomidine gtt. Still on dexmedetomidine gtt able to be weaned. 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 As gabapentin is known to enhance the highs with opiates, I am skeptical of this diagnosis of neuropathy particular in someone that is only 31 years old. We will discontinue the gabapentin Pt gave me perissoin to speak with his girlfriend, Ms. Hopper, who is here for withdrawal treatment and update on his condition. Medications at Discharge Home Medications gabapentin 800 mg tablet 800 mg PO TID neuropathy 01/24/21 tizanidine 4 mg tablet (Zanaflex) 4 mg PO QHS muscle spasms 01/24/21 albuterol 90 mcg/actuation aerosol inhaler 90 mcg inhalation Q4H PRN PRN SOB 04/19/22 folic acid 1 mg tablet 1 mg PO DAILY@0800 supplement 04/19/22 Hospital Course Operations None Procedures None Summary of Care Provided Minutes Spent on Discharge: 45 Hospital Course: Patient presented for alcohol and opiate withdrawal. Patient was started on phenobarbital and buprenorphine but got worse and became very agitated and therefore required being placed in the ICU and started on a Precedex drip. The following day, patient was doing better and was more alert. Plan was for the patient to continue with that to get over his withdrawal and then eventually go home. Patient also came here with his girlfriend. Patient's girlfriend completed the course that was uncomplicated, however, her discharge was for today and he was not planned on being medically discharged today. She was discharged earlier in the day. The patient was aware of this. She was unable to get hold of any family, though its unclear if if she actually did call family, she she asked to get his keys so she can drive. He stated that he would not want to do so. She was very upset and I went and saw her and she was very tearful and asked that I talk to him. So I went back and talk to him with the nurse present and asked him if he could give her the keys. He expressed apprehension that he is okay with her driving his car if he is there but not without him. He verified that the registration is in his name. I told him to do what ever he is most comfortable with his car if he does not want her to have the keys and that is his right. But he expressed remorse because that she would be on her own though she was offered numbers to go to shelters as she does not live in the area. He eventually wished to leave AGAINST MEDICAL ADVICE so that he can be with her as he felt to be better that they both quit together. I told him that his right though I do not recommend that as he is still being treated with the Precedex drip. Patient did insist on leaving gets medical advice. He asked about having something for work as an excuse that he is in the hospital. I told him that I would not provide that as he is leaving AGAINST MEDICAL ADVICE but he can get his records to validate that he has been in the hospital. Weight / BMI Weight Weight: 58.6 kg Body Mass Index (BMI) 21.2 ABG / Lab / Microbiology Data Result Diagrams: 04/19/22 16:40 04/19/22 16:40 D/C Instructions Discharge Diet: No restrictions Meaningful Use Info Meaningful Use Diagnoses (Choose all that apply): None applicable Discharge Plan Admission Admit Date/Time: 04/19/22 16:40 Attending Provider: Gonsalo Shea Primary Care Provider: Care Physician,Bibi Primary Consulting Providers: Silverio Toure Discharge Orders/Prescriptions Prescriptions: No Action tizanidine [Zanaflex] 4 mg Tablet 4 mg PO QHS gabapentin 800 mg Tablet 800 mg PO TID folic acid 1 mg tablet 1 mg PO DAILY@0800 albuterol 90 mcg/actuation Aerosol 90 mcg INHALATION Q4H PRN PRN (Reason: SOB) Referrals / Follow Up: Care Physician,No Primary [Primary Care Provider] - Disposition Disposition (needs filled in before D/C Order can be placed): Against Medical Advice Charges/Coding Visit Charges Inpatient E&M: 56589 Disch Hosp
--- NOTE | 2022-04-22 16:31 | NURSING ---
dr Shea here talking with patient , leaving AMA
== END 2022-04-22 16:35 | disposition left against medical advice (07) | DRG 770 ==
LOC: ED 16:49 → MS3 04-20 06:54 → ICU 04-22 16:32 → MS3 10-28 08:08 → ICU 10-28 08:08 → MS3 10-28 08:08
PROVIDERS: Emergency Medicine; Admitting Provider Internal Medicine; Emergency Provider Emergency Medicine
DX: F11.23 Opioid dependence with withdrawal (principal); F10.239 Alcohol dependence with withdrawal, unspecified; F13.19 Sedative, hypnotic or anxiolytic abuse with unspecified sedative, hypnotic or anxiolytic-induced disorder; F17.210 Nicotine dependence, cigarettes, uncomplicated; M51.36 Other intervertebral disc degeneration, lumbar region; Y90.1 Blood alcohol level of 20-39 mg/100 ml; G89.29 Other chronic pain
CPT/HCPCS: 80048; 80307; 82077; 85025; 99283; H0012; A4216

== ENCOUNTER 2022-05-19 02:37 | Observation (INO) | payer MEDICAID, SELFPAY ==
[2022-05-19] VITALS (11 sets, daily range): BP systolic 95–117; BP diastolic 68–90; PULSE 78–106; RESP 15–20; TEMP 36.6–37; O2SAT 93–98; BMI 19.4; BMI 18.9
--- NOTE | 2022-05-19 02:56 | EDS_ITS ---
HPI History of Present Illness Chief Complaint: Substance Abuse Informant: patient Onset/Context/Timing Onset: Today Context: Gradual Onset Timing: Continuous Worsened by: Nothing Relieved by: Nothing Associated Symptoms Associated Symptoms: Positive for seizure (Questionable) and palpatations; Negative for vomiting*, diarrhea*, fever*, rash*, tremor, change in mental status, suicidal ideation or homicidal ideation Narrative Narrative: Presents requesting detox from fentanyl and alcohol. Patient states he was admitted here for detox approximately 1 month ago and then went to an inpatient facility. Patient states he got out of that approximately 2 to 3 weeks ago. Patient states she started using shortly after that. Patient states he uses about half a gram of fentanyl per day. Patient states he also drinks half of a bottle of hard liquor along with 5-6 tall boys. Patient states his last drink was approximate 1 to 2 hours ago. Patient states his last opiate abuse was earlier this morning. Patient denies any suicidal or homicidal ideations. Patient states he has a history of a seizure disorder and does not think he had a seizure but might have had 1 yesterday. Prior similar symptoms: Yes PFSH PFSH Medical History Alcohol abuse Alcohol dependence Asthma Benzodiazepine abuse, continuous Chronic neck pain History of seizure due to alcohol withdrawal Lumbar disc herniation Opiate dependence Polysubstance abuse Severe protein-calorie malnutrition Tobacco use Umbilical hernia Home Medications gabapentin 800 mg tablet 800 mg PO TID neuropathy 01/24/21 [History Last Taken 1 Week Ago ~04/12/22] tizanidine 4 mg tablet (Zanaflex) 4 mg PO QHS muscle spasms 01/24/21 [History Last Taken 01/23/21] albuterol 90 mcg/actuation aerosol inhaler 90 mcg inhalation Q4H PRN PRN SOB 04/19/22 [History Last Taken 04/18/22] folic acid 1 mg tablet 1 mg PO DAILY@0800 supplement 04/19/22 [History Last Taken Unknown] Allergy/AdvReac Type Severity Reaction Status Date / Time No Known Allergies Allergy Verified 01/24/21 23:38 Family History Mother Cancer Lung cancer. Father Cancer Lung cancer, passed. Surgical History History of appendectomy History of fusion of cervical spine Social History household members: significant other Smoking Status: Current every day smoker tobacco type: cigarettes alcohol intake: current alcohol intake frequency: 3 or more drinks per day Alcohol type: beer and hard liquor details: Patient daily intake 6-12 beers and 1 pint 80 proof liquor. 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 ROS ROS ED Constitutional Constitutional ED: Reports chills and subjective; Denies fever(s) Eyes Eyes: Denies blurry vision or change in vision ENT ENT ED: Reports rhinorrhea; Denies sore throat Cardiovascular Cardiovascular: Reports chest pain and palpitations Respiratory/Chest Respiratory/Chest: Reports cough and dyspnea Gastrointestinal Gastrointestinal: Denies nausea or vomiting Genitourinary Genitourinary ED: Denies dysuria or hematuria Musculoskeletal Musculoskeletal: Reports back pain and neck pain Integumentary Denies abscess or rash Neurologic Neurologic: Reports headache(s); Denies weakness Psychiatric Psychiatric: Denies depression, suicidal ideation or suicidal thoughts Allergic/Immunologic Allergic/Immunologic ED: Denies mouth swelling or urticaria EXAM Physical Exam Const Vital Signs: 05/19/22 02:39 05/19/22 03:07 05/19/22 03:07 Temperature 98 F Temperature Source Temporal Pulse Rate 93 105 H Respiratory Rate 16 18 20 H Respiratory Effort Normal Non-Labored Short of Breath Respiratory Depth Normal Respiratory Pattern Normal Normal Blood Pressure 114/90 H Blood Pressure Mean 98 Pulse Ox 98 96 Oxygen Delivery Method Room Air Room Air 05/19/22 04:15 05/19/22 04:29 Temperature 98.6 F Temperature Source Temporal Pulse Rate 95 Respiratory Rate 15 Respiratory Effort Non-Labored Respiratory Depth Normal Respiratory Pattern Normal Blood Pressure 105/72 Blood Pressure Mean 83 Pulse Ox 95 Oxygen Delivery Method Room Air Room Air Positive well nourished and well developed General Appearance ED: well developed and NAD HEENT Reports moist mucous membranes Neck supple and no JVD Resp normal respiratory effort and clear to auscultation bilaterally Cardio regular rate, regular rhythm and no murmurs GI normal to inspection, nondistended, normoactive bowel sounds, soft to palpation and non-tender Palpation: soft Extremity normal to inspection General Extremety ED: Negative for edema or tenderness General Extremity: Negative for edema Neuro oriented x3, CN's II-XII intact bilaterally and no sensory deficits noted Sensorium / Orientation: alert Motor Exam: strength 5/5 throughout Psych mental status grossly normal Skin no rashes or lesions noted MDM MDM MDM Narrative Medical decision making narrative: Basic labs were obtained. CBC was within normal limits. Urinalysis does not show any evidence of urinary tract infection. Comprehensive metabolic profile was within normal limits. Urine tox screen was positive for MDMA. Serum alcohol level was 79. PA and lateral chest x-ray was obtained. There are 2 views. On my interpretation, there is a right upper lobe infiltrate. There is no pneumothorax. Bony thorax is normal. There is no cardiomegaly. Radiologist also interpreted the x-ray and agrees. Patient was started on Zithromax and Augmentin. Case was discussed with the hospitalist. He will admit the patient to his service. Patient understood and was agreeable with the plan. All questions were answered. Lab Data Attestation: I reviewed the patient's lab results. Labs: Laboratory Results - last 24 hr 05/19/22 05/19/22 05/19/22 03:00 03:00 03:20 WBC 6.3 RBC 4.78 Hgb 15.1 Hct 45.2 MCV 94.6 H MCH 31.6 MCHC 33.4 RDW Std Deviation 43.1 RDW Coeff of Estuardo 12.4 Plt Count 195 MPV 9.0 Immature Gran % (Auto) 0.300 Neut % (Auto) 66.4 Lymph % (Auto) 20.5 Stanley % (Auto) 6.2 Eos % (Auto) 6.1 H Baso % (Auto) 0.5 Absolute Neuts (auto) 4.2 Absolute Lymphs (auto) 1.28 Nucleated RBC % 0 Sodium Potassium Chloride Carbon Dioxide Anion Gap BUN Creatinine Estim Creat Clear Calc Est GFR (MDRD) Af Amer Est GFR (MDRD) Non-Af BUN/Creatinine Ratio Glucose Calcium Total Bilirubin AST ALT Alkaline Phosphatase Total Protein Albumin Globulin Albumin/Globulin Ratio Lipase Urine Color Yellow Urine Clarity Clear Urine pH 5.0 Ur Specific Vanderpool 1.020 Urine Protein Negative Urine Glucose (UA) Normal Urine Ketones Negative Urine Occult Blood Negative Urine Nitrite Negative Urine Bilirubin Negative Urine Urobilinogen Normal Ur Leukocyte Esterase Negative Urine RBC 0 SEEN Urine WBC 0 SEEN Ur Squamous Epith Cells 0 SEEN Urine Bacteria 0 SEEN Urine Mucus 0 SEEN Urine Opiates Screen NEGATIVE Urine Methadone Screen NEGATIVE Ur Barbiturates Screen NEGATIVE Ur Phencyclidine Scrn NEGATIVE Ur Amphetamines Screen NEGATIVE MDMA (Ecstasy) Screen POSITIVE H U Benzodiazepines Scrn NEGATIVE Urine Cocaine Screen NEGATIVE U Cannabinoids Screen NEGATIVE Ur Drug Screen Comment Ethyl Alcohol 05/19/22 05/19/22 03:20 03:20 WBC RBC Hgb Hct MCV MCH MCHC RDW Std Deviation RDW Coeff of Estuardo Plt Count MPV Immature Gran % (Auto) Neut % (Auto) Lymph % (Auto) Stanley % (Auto) Eos % (Auto) Baso % (Auto) Absolute Neuts (auto) Absolute Lymphs (auto) Nucleated RBC % Sodium 139 Potassium 3.9 Chloride 103 Carbon Dioxide 30.0 Anion Gap 6 BUN 14 Creatinine 0.86 Estim Creat Clear Calc 101.19 Est GFR (MDRD) Af Amer 132 Est GFR (MDRD) Non-Af 109 BUN/Creatinine Ratio 16.2 Glucose 99 Calcium 9.1 Total Bilirubin 0.30 AST 12 L ALT 28 Alkaline Phosphatase 82 Total Protein 7.5 Albumin 3.5 Globulin 4.0 Albumin/Globulin Ratio 0.9 Lipase 117 Urine Color Urine Clarity Urine pH Ur Specific Vanderpool Urine Protein Urine Glucose (UA) Urine Ketones Urine Occult Blood Urine Nitrite Urine Bilirubin Urine Urobilinogen Ur Leukocyte Esterase Urine RBC Urine WBC Ur Squamous Epith Cells Urine Bacteria Urine Mucus Urine Opiates Screen Urine Methadone Screen Ur Barbiturates Screen Ur Phencyclidine Scrn Ur Amphetamines Screen MDMA (Ecstasy) Screen U Benzodiazepines Scrn Urine Cocaine Screen U Cannabinoids Screen Ur Drug Screen Comment Ethyl Alcohol 79.0 Radiography Chest X-Ray - ED: 2 View, Read by ED Physician, Read by Radiologist and Right Infiltrate Diagnostic Testing: Clinical Impression(s) from Imaging Studies Chest X-Ray 05/19/22 02:59 IMPRESSION: Right upper lobe pneumonia. Electronically Signed: Barbie Hayes MD at 4:25 EST Reading Location ID and State: [facility] / [place] Tel , Service support , Discharge Plan Triage Chief Complaint: Substance Abuse ED Provider: Gonsalo Purcell Dx/Rx/DC Orders Clinical Impression: Opiate withdrawal, Alcohol withdrawal, Pneumonia Prescriptions: No Action tizanidine [Zanaflex] 4 mg Tablet 4 mg PO QHS gabapentin 800 mg Tablet 800 mg PO TID folic acid 1 mg tablet 1 mg PO DAILY@0800 albuterol 90 mcg/actuation Aerosol 90 mcg INHALATION Q4H PRN PRN (Reason: SOB) Primary Care Provider: Care Physician,No Primary Referrals: Care Physician,No Primary [Primary Care Provider] - Disposition Disposition: Acute Care Hospital [facility]
--- NOTE | 2022-05-19 02:59 | RAD_ITS ---
STUDY: X-RAY CHEST REASON FOR EXAM: Male, 31 years old. Cough TECHNIQUE: Frontal and lateral views of the chest. COMPARISON: None. FINDINGS: There is ill-defined groundglass opacity in the right upper lobe suggesting early pneumonia. There is no demonstrated pleural abnormality. Normal size heart. Normal mediastinum and anthony. Normal visualized pulmonary arteries. Normal visualized aortic arch and descending thoracic aorta. Normal visualized thoracic spine. Normal visualized ribs, clavicles, and shoulders. There is no demonstrated abnormality of the visualized soft tissue structures of the upper abdomen. RAD/Chest PA and Lateral IMPRESSION: Right upper lobe pneumonia. Electronically Signed: Barbie Hayes MD at 4:25 EST ,
[2022-05-19] MEDS: Ipratropium/Albuterol Sulfate 3 ML AMPUL.NEB INHALATION (03:07)
[2022-05-19 03:18] LABS: Bacteria 0 SEEN /hpf (None Seen); Mucous, Urine 0 SEEN /hpf (<or=2+); Red Blood Cells-Urine 0 SEEN /hpf (0-5); Squamous Epithelial Cells - UA 0 SEEN /hpf (0-5); White Blood Cells 0 SEEN /hpf (0-5)
[2022-05-19 03:20] LABS: Color, Urine Yellow (Yellow); Glucose, Dipstick Normal (Normal); Ketone-Dipstick Negative (Negative); Leukocyte Esterase-Dipstick Negative /ul (Negative); Nitrite-Dipstick Negative (Negative); Occult Blood-Urine Negative /ul (Negative); Protein-Dipstick Negative (Negative); Urine Bilirubin Dipstick Negative (Negative); Urine Clarity Clear (Clear); Urine Urobilinogen Normal (Normal)
[2022-05-19 03:27] LABS: Absolute Lymphocyte Count 1.28 X10^3/uL (0.83-4.51); Absolute Neutrophil Count 4.2 X10^3/uL (2.0-7.7); Basophil# 0.03 X10^3/uL; Basophil% 0.5 % (0-1); Eosinophil# 0.38 X10^3/uL; Eosinophils% 6.1 % (0-5); Hematocrit 45.2 % (40-54); Hemoglobin 15.1 g/dL (13.0-16.5); Lymphocyte # 1.28 X10^3/ul (0.83-4.51); Lymphocyte % 20.5 % (19-41); Mean Corp Hgb Conc 33.4 g/dL (32-36); Mean Corpuscular Hgb 31.6 pg (27.0-32.0); Mean Corpuscular Volume 94.6 fL (80-94); Monocyte# 0.39 X10^3/uL; Monocyte% 6.2 % (0-10); NRBC Flagged by Analyzer 0 % (0-5); Neutrophil # 4.15 X10^3/uL (2.7-7.7); Neutrophil % 66.4 % (47-70); Platelet Count 195 K/mm3 (150-450); RBC Distribution Width CV 12.4 % (11.6-14.6); RBC Distribution Width SD 43.1 fl (35.1-43.9); Red Blood Count 4.78 M/mm3 (4.6-6.2); White Blood Count 6.3 K/mm3 (4.4-11.0)
[2022-05-19 03:44] LABS: Amphetamine Urine VISTA NEGATIVE (<1000 ng/mL); Barbiturate Urine VISTA NEGATIVE (< 200 ng/mL); Benzodiazepine Urine VISTA NEGATIVE (< 200 ng/mL); Cocaine Urine VISTA NEGATIVE (< 300 ng/mL); Ecstacy Urine VISTA POSITIVE (< 500 ng/mL); Methadone Urine VISTA NEGATIVE (< 300 ng/mL); PCP Urine VISTA NEGATIVE (< 25 ng/mL); THC Urine VISTA NEGATIVE (< 50 ng/mL); Vista UDS pH Range 4
[2022-05-19 03:48] LABS: ALB/GLOB Ratio 0.9 RATIO (0.9-2.4); AST(SGOT) 12 U/L (15-37); Alanine Aminotransfer ALT/SGPT 28 U/L (16-61); Albumin, Serum 3.5 g/dL (3.2-5.0); Alkaline Phosphatase 82 U/L (45-117); Anion Gap 6 (5-15); BUN 14 mg/dL (7-18); BUN/Creat Ratio 16.2 RATIO (10-20); Calcium,Total 9.1 mg/dL (8.5-10.1); Chloride 103 mmol/L (98-107); Creatinine, Serum 0.86 mg/dL (0.70-1.30); EST Glomerular Filtration Rate 109 mL/min (>60); Est Glom Filt Rate - Afr Amer 132 mL/min (>60); Estimated Creatinine Clearance 101.19 ml/min; Glucose 99 mg/dL (74-106); Lipase 117 U/L (73-393); Potassium 3.9 mmol/L (3.5-5.1); Protein, Total 7.5 g/dL (6.4-8.2); Sodium Level 139 mmol/L (136-145)
--- NOTE | 2022-05-19 04:28 | PCM.HP.STD ---
HPI - General General Date of Admission: 05/19/22 Date of Service: 05/19/22 Chief Complaint: Desire for detoxification HPI Narrative IRIS CLARK, is a 31 M with a significant history of alcoholism and opioid abuse who presented to the emergency department for detoxification. Of note patient presented with his fianc? and his fianc?e's father. Alcoholism: Patient splits 1/5 of hard liquor with his fianc? daily. In addition he drinks about 5-6 tall boys per day. Last time he drank was few hours before presentation. Reportedly all in all he has been drinking about 14 to 15 years. He had a period of about a year and a half sobriety. Opioid use: Reportedly he has been using fentanyl. He shoots the fentanyl. He uses about a gram each day. Last time he used fentanyl was several hours before presentation. He has been using since 2019. He had a brief period of sobriety for about 5 years. He relapsed about 9 months ago. Marijuana use: Also patient smokes marijuana. At the emergency department he complained of some shortness of breath and a productive cough of greenish to yellowish sputum. Of note patient was at our hospital ([facility]) for detoxification on 04/19/2022 and he was discharged on 04/22/2022. [facility] Medical History Alcohol abuse Alcohol dependence Asthma Benzodiazepine abuse, continuous Chronic neck pain History of seizure due to alcohol withdrawal Lumbar disc herniation Opiate dependence Polysubstance abuse Severe protein-calorie malnutrition Tobacco use Umbilical hernia Home Medications gabapentin 800 mg tablet 800 mg PO TID neuropathy 01/24/21 [History Last Taken 1 Week Ago ~04/12/22] tizanidine 4 mg tablet (Zanaflex) 4 mg PO QHS muscle spasms 01/24/21 [History Last Taken 01/23/21] albuterol 90 mcg/actuation aerosol inhaler 90 mcg inhalation Q4H PRN PRN SOB 04/19/22 [History Last Taken 04/18/22] Allergy/AdvReac Type Severity Reaction Status Date / Time No Known Allergies Allergy Verified 05/19/22 05:51 Family History Mother Cancer Lung cancer. Father Cancer Lung cancer, passed. Surgical History History of appendectomy History of fusion of cervical spine Social History household members: significant other Smoking Status: Current every day smoker tobacco type: cigarettes alcohol intake: current alcohol intake frequency: 3 or more drinks per day Alcohol type: beer and hard liquor details: Patient daily intake 6-12 beers and 1 pint 80 proof liquor. 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 ROS ROS Narrative Pertinent positives and pertinent negatives as noted in HPI. All other systems were reviewed and are negative Vital Signs Vital Signs Vital Signs: 05/19/22 02:39 05/19/22 03:07 05/19/22 03:07 Temperature 98 F Temperature Source Temporal Pulse Rate 93 105 H Respiratory Rate 16 18 20 H Respiratory Effort Normal Non-Labored Short of Breath Respiratory Depth Normal Respiratory Pattern Normal Normal Blood Pressure 114/90 H Blood Pressure Mean 98 Pulse Ox 98 96 Oxygen Delivery Method Room Air Room Air 05/19/22 04:15 Temperature 98.6 F Temperature Source Temporal Pulse Rate 95 Respiratory Rate 15 Respiratory Effort Respiratory Depth Respiratory Pattern Blood Pressure 105/72 Blood Pressure Mean 83 Pulse Ox 95 Oxygen Delivery Method Room Air Weight Weight: 58.014 kg Body Mass Index (BMI) 19.4 Physical Exam Narrative Physical exam: General: Well-nourished, well-developed. Head: Normocephalic, atraumatic, no tenderness Eyes: Vision is grossly intact. EOMI ENT, no trauma, moist mucous membranes, no rhinorrhea Neck: Nontender, No thyromegaly. CVS: Regular rate and rhythm. S1-S2 present. No murmur, gallop or rub. Respiratory : clear to auscultation bilaterally, chest wall nontender, no wheezing Abdomen: Soft, nontender, nondistended, normal bowel sounds, no masses : Deferred Back: Nontender, no CVA tenderness, no midline spinal tenderness, deformities, step-offs Extremities: Nontender full range of motion, no trauma Skin: Needle track grey on left upper extremities. Normal color. Neuro: Alert, oriented, cranial nerves II through XII grossly intact. Psychiatry: Normal mood. Normal affect. Not depressed. Not anxious. Results Lab / Micro Data Result Diagrams: 05/19/22 03:20 05/19/22 03:20 Labs: Laboratory Results - last 24 hr 05/19/22 03:00: Urine Color Yellow, Urine Clarity Clear, Urine pH 5.0, Ur Specific [place] 1.020, Urine Protein Negative, Urine Glucose (UA) Normal, Urine Ketones Negative, Urine Occult Blood Negative, Urine Nitrite Negative, Urine Bilirubin Negative, Urine Urobilinogen Normal, Ur Leukocyte Esterase Negative, Urine RBC 0 SEEN, Urine WBC 0 SEEN, Ur Squamous Epith Cells 0 SEEN, Urine Bacteria 0 SEEN, Urine Mucus 0 SEEN 05/19/22 03:00: Urine Opiates Screen NEGATIVE, Urine Methadone Screen NEGATIVE, Ur Barbiturates Screen NEGATIVE, Ur Phencyclidine Scrn NEGATIVE, Ur Amphetamines Screen NEGATIVE, MDMA (Ecstasy) Screen POSITIVE H, U Benzodiazepines Scrn NEGATIVE, Urine Cocaine Screen NEGATIVE, U Cannabinoids Screen NEGATIVE, Ur Drug Screen Comment 05/19/22 03:20: WBC 6.3, RBC 4.78, Hgb 15.1, Hct 45.2, MCV 94.6 H, MCH 31.6, MCHC 33.4, RDW Std Deviation 43.1, RDW Coeff of Estuardo 12.4, Plt Count 195, MPV 9.0, Immature Gran % (Auto) 0.300, Neut % (Auto) 66.4, Lymph % (Auto) 20.5, [facility] % (Auto) 6.2, Eos % (Auto) 6.1 H, Baso % (Auto) 0.5, Absolute Neuts (auto) 4.2, Absolute Lymphs (auto) 1.28, Nucleated RBC % 0 05/19/22 03:20: Sodium 139, Potassium 3.9, Chloride 103, Carbon Dioxide 30.0, Anion Gap 6, BUN 14, Creatinine 0.86, Estim Creat Clear Calc 101.19, Est GFR (MDRD) Af Amer 132, Est GFR (MDRD) Non-Af 109, BUN/Creatinine Ratio 16.2, Glucose 99, Calcium 9.1, Total Bilirubin 0.30, AST 12 L, ALT 28, Alkaline Phosphatase 82, Total Protein 7.5, Albumin 3.5, Globulin 4.0, Albumin/Globulin Ratio 0.9, Lipase 117 05/19/22 03:20: Ethyl Alcohol 79.0 Micro: Microbiology 05/19/22 03:08 Nasal Secretion SARS-CoV-2 & FLU Antigen (Rapid) - Final Radiology Impression Chest X-Ray 05/19/22 02:59 IMPRESSION: Right upper lobe pneumonia. Electronically Signed: Barbie Hayes MD at 4:25 EST , Assessment & Plan Assessment/Plan (1) Desire for detoxification: (2) Alcohol dependence: (3) Opiate dependence: (4) Pneumonia: PLAN: Plan Alcohol dependence and desire for detoxification Patient be started on phenobarbital and other adjunctive medications: Gabapentin as needed; dicyclomine as needed; Vistaril as needed; Imodium as needed; trazodone as needed; Zofran as needed; scheduled thiamine; and schedule folic acid. Monitor CIWA score Opioid dependence and withdrawal Patient be started on Subutex and other adjunctive medications Monitor COWS and CINA score Pneumonia Gram-positive or gram-negative. Chest x-ray independently interpreted showed right upper lobe infiltrate aggravated interpretation. CBC showed normal white count. Augmentin and azithromycin p.o. started at the emergency department and continued. Tobacco abuse Counseled Nicotine patch prescribed. DVT prophylaxis Low risk Encourage to ambulate Charges/Coding Visit Charges Inpatient E&M: 74629 Init Hosp L3
[2022-05-19] MEDS: Azithromycin 250 MG Tablet 500 MG PO (04:50)
[2022-05-19] MEDS: Amox/Clavulanate 875 MG Tablet PO ×2 (04:50→20:16)
[2022-05-19] MEDS: Phenobarbital 32.4 MG Tablet 64.8 MG PO ×5 (06:06→20:32)
[2022-05-19] MEDS: Gabapentin 300 MG Capsule PO (06:06)
[2022-05-19] MEDS: Folic Acid 1 MG Tablet PO (10:11)
[2022-05-19] MEDS: Thiamine Hydrochloride 100 MG Tablet PO (10:11)
[2022-05-19] MEDS: tiZANidine HCl 2 MG Tablet 4 MG PO (20:16)
[2022-05-19] MEDS: Albuterol 2.5 MG/3 ML VIAL.NEB. INHALATION (21:15)
[2022-05-20] VITALS: BP 106/79; PULSE 86; RESP 18; TEMP 36.6; O2SAT 96
[2022-05-20] MEDS: Phenobarbital 32.4 MG Tablet 64.8 MG PO ×6 (02:06→21:05)
[2022-05-20 02:09] VITALS: BP 106/84; PULSE 86; RESP 18; TEMP 36.6; O2SAT 97
[2022-05-20] MEDS: Gabapentin 300 MG Capsule PO ×2 (02:13→13:21)
[2022-05-20 05:35] VITALS: BP 102/73; PULSE 87; RESP 18; TEMP 36.6; O2SAT 96
[2022-05-20 09:26] VITALS: BP 91/65; PULSE 68; RESP 15; TEMP 36.5; O2SAT 98
[2022-05-20] MEDS: Folic Acid 1 MG Tablet PO (09:30)
[2022-05-20] MEDS: Amox/Clavulanate 875 MG Tablet PO ×2 (09:30→21:07)
[2022-05-20] MEDS: Thiamine Hydrochloride 100 MG Tablet PO (09:30)
[2022-05-20] MEDS: Azithromycin 250 MG Tablet 500 MG PO (09:30)
--- NOTE | 2022-05-20 10:22 | PCM.PN.HOSP ---
Subjective Subjective Doing well, no issues overnight. CINA score of 2 with a CIWA score of 3 Objective Data Objective Data Vital Signs: Vital Signs Temp Pulse Resp BP Pulse Ox O2 Del Method 97.7 F L 68 15 91/65 98 Room Air 05/20/22 09:26 05/20/22 09:26 05/20/22 09:26 05/20/22 09:26 05/20/22 09:26 05/20/22 09:26 Oxygen Delivery Method Room Air Weight: 120 lb 13.013 oz Body Mass Index (BMI) 18.9 Intake & Output: Intake and Output for Last 24 Hours 05/19/22 05/20/22 05/21/22 03:59 03:59 03:59 Intake Total 960 / 960 120 / 120 Output Total 1500 / 1500 300 / 300 Balance -540 / -540 -180 / -180 Medical Nutrition Assessment Dietitian: Malnutrition Criteria Met Start: 05/19/22 10:19 Freq: Status: Active Protocol: Document 05/19/22 10:19 AG (Rec: 05/19/22 10:19 [id number]) Nutrition Malnutrition Evidence of Malnutrition Exists Yes Malnutrition (severe): Chronic Evidenced By Suboptimal Energy Intake ( Severe),Weight Loss (Severe) Clinical Problem Chronic Disease or Condition Related Malnutrition Etiology severe, chronic malnutrition related to inadequate protein/ energy intake in context of substance abuse Signs/Symptoms as evidenced by unintentional wt loss of 8.4#/6.5% x 1 month ; estimated PO intake meeting <75% of estimated energy needs x 1 month; BMI 18.9 Status Active Problem Recommendation Dietitian Recommendations/Changes regular diet; will add ensure compact TID w/ meals for additional calories/protein if consumed given signs/symptoms of malnutrition Lab / Micro Data Result Diagrams: 05/19/22 03:20 05/19/22 03:20 Micro: Microbiology 05/19/22 03:08 Nasal Secretion SARS-CoV-2 & FLU Antigen (Rapid) - Final Physical Exam Narrative General: Alert, Oriented x3, Cooperative, No apparent distress HEENT: Atraumatic, PERRLA, EOMI, Normocephalic Oral: Moist Mucosa Neck: Supple, No JVD Lungs: Clear to auscultation, Normal air movement, No rhonchi, No wheeze, No rales Cardiovascular: Regular rate, Regular Rhythm, Normal S1, Normal S2, No murmurs Abdomen: Soft, Non Tender, Non-Distended, No Hepato-splenomegaly Extremities: No edema, Capillary Refill Less than 3 Seconds Skin: No rashes, No breakdown Musculoskeletal: No Tenderness to Palpation of Joints or Extremities Neurological: Cranial nerves II-XII grossly intact, Motor Exam 5/5 strength throughout, Sensory exam intact to light touch and pain Psych/Mental Status: Normal Affect, Appropriate Assessment & Plan Assessment/Plan (1) Desire for detoxification: (2) Alcohol dependence: (3) Opiate dependence: (4) Pneumonia: PLAN: Plan 1. Alcohol withdrawal and opiate withdrawal/tobacco abuse ? Continue with the alcohol and opiate withdrawal protocol ? We will have him meet with 180 to discuss outpatient detox management ? Discussed cessation, continue with nicotine patch 2. Right upper lobe pneumonia ? No white count, he remains afebrile and no obvious cough ? He is continued on Augmentin and azithromycin DVT: Ambulation Charges/Coding Visit Charges Inpatient E&M: 74220 Subs Hosp L2
--- NOTE | 2022-05-20 10:50 | ADDICTION ---
This medical technical writer met with PT to conduct ASAM, MSE, AUDIT, DUDIT assessments and to plan for d/c. PT A+Ox4 and participated actively. All assessments completed and placed in PT's chart. PT plans to f/u with follow-up treatment services, however he wanted to discuss it with his family upon d/c. This worker offered resources based on him listed wants and needs. He reports that he is leaning towards [facility] since his girlfriend is already established there. PT did not indicate a need for transportation post d/c from [facility].
[2022-05-20] MEDS: Acetaminophen 325 MG Tablet 650 MG PO ×2 (11:34→21:07)
[2022-05-20 14:04] VITALS: BP 100/74; PULSE 88; RESP 20; TEMP 36.4; O2SAT 97
[2022-05-20] MEDS: Buprenorphine HCl 2 MG TAB.SUBL SL ×2 (15:41→21:12)
[2022-05-20] MEDS: cloNIDine HCl 0.1 MG Tablet PO (18:33)
[2022-05-20 18:35] VITALS: BP 111/96
[2022-05-20] MEDS: tiZANidine HCl 2 MG Tablet 4 MG PO (21:05)
[2022-05-21] VITALS (9 sets, daily range): BP systolic 105–121; BP diastolic 69–80; PULSE 74–95; RESP 16–18; TEMP 36.6–36.9; O2SAT 95–98
[2022-05-21] MEDS: Phenobarbital 32.4 MG Tablet 64.8 MG PO ×5 (02:03→20:16)
[2022-05-21] MEDS: Gabapentin 300 MG Capsule PO ×3 (02:03→20:24)
[2022-05-21] MEDS: Buprenorphine HCl 2 MG TAB.SUBL SL ×3 (05:44→22:53)
[2022-05-21] MEDS: cloNIDine HCl 0.1 MG Tablet PO (08:12)
[2022-05-21] MEDS: Thiamine Hydrochloride 100 MG Tablet PO (08:12)
[2022-05-21] MEDS: 0.9% Saline Lock 10 ML Syringe IV ×2 (08:12→22:50)
[2022-05-21] MEDS: Folic Acid 1 MG Tablet PO (08:12)
--- NOTE | 2022-05-21 09:36 | PCM.PN.HOSP ---
Subjective Subjective Doing well, no issues overnight. Cina score of 1 and a CIWA score of 3 Objective Data Objective Data Vital Signs: Vital Signs Temp Pulse Resp BP Pulse Ox O2 Del Method 98 F 74 18 111/77 98 Room Air 05/21/22 08:29 05/21/22 08:29 05/21/22 08:29 05/21/22 08:29 05/21/22 08:29 05/21/22 08:29 Oxygen Delivery Method Room Air Weight: 120 lb 13.013 oz Body Mass Index (BMI) 18.9 Intake & Output: Intake and Output for Last 24 Hours 05/20/22 05/21/22 05/22/22 03:59 03:59 03:59 Intake Total 960 / 960 120 / 120 Output Total 1500 / 1500 1100 / 1100 350 / 350 Balance -540 / -540 -980 / -980 -350 / -350 Medical Nutrition Assessment Dietitian: Malnutrition Criteria Met Start: 05/19/22 10:19 Freq: Status: Active Protocol: Document 05/19/22 10:19 AG (Rec: 05/19/22 10:19 [id number]) Nutrition Malnutrition Evidence of Malnutrition Exists Yes Malnutrition (severe): Chronic Evidenced By Suboptimal Energy Intake ( Severe),Weight Loss (Severe) Clinical Problem Chronic Disease or Condition Related Malnutrition Etiology severe, chronic malnutrition related to inadequate protein/ energy intake in context of substance abuse Signs/Symptoms as evidenced by unintentional wt loss of 8.4#/6.5% x 1 month ; estimated PO intake meeting <75% of estimated energy needs x 1 month; BMI 18.9 Status Active Problem Recommendation Dietitian Recommendations/Changes regular diet; will add ensure compact TID w/ meals for additional calories/protein if consumed given signs/symptoms of malnutrition Lab / Micro Data Result Diagrams: 05/19/22 03:20 05/19/22 03:20 Micro: Microbiology 05/19/22 03:08 Nasal Secretion SARS-CoV-2 & FLU Antigen (Rapid) - Final Physical Exam Narrative General: Alert, Oriented x3, Cooperative, No apparent distress HEENT: Atraumatic, PERRLA, EOMI, Normocephalic Oral: Moist Mucosa Neck: Supple, No JVD Lungs: Clear to auscultation, Normal air movement, No rhonchi, No wheeze, No rales Cardiovascular: Regular rate, Regular Rhythm, Normal S1, Normal S2, No murmurs Abdomen: Soft, Non Tender, Non-Distended, No Hepato-splenomegaly Extremities: No edema, Capillary Refill Less than 3 Seconds Skin: No rashes, No breakdown Musculoskeletal: No Tenderness to Palpation of Joints or Extremities Neurological: Cranial nerves II-XII grossly intact, Motor Exam 5/5 strength throughout, Sensory exam intact to light touch and pain Psych/Mental Status: Normal Affect, Appropriate Assessment & Plan Assessment/Plan (1) Desire for detoxification: (2) Alcohol dependence: (3) Opiate dependence: (4) Pneumonia: PLAN: Plan 1. Alcohol withdrawal and opiate withdrawal/tobacco abuse ? Continue with the alcohol and opiate withdrawal protocol ? We will have him meet with 180 to discuss outpatient detox management ? Discussed cessation, continue with nicotine patch 2. Right upper lobe pneumonia ? No white count, he remains afebrile and no obvious cough ? He is continued on Augmentin and azithromycin DVT: Ambulation Charges/Coding Visit Charges Inpatient E&M: 74803 Subs Hosp L2
[2022-05-21] MEDS: Amox/Clavulanate 875 MG Tablet PO ×2 (10:52→22:51)
[2022-05-21] MEDS: Azithromycin 250 MG Tablet 500 MG PO (10:53)
--- NOTE | 2022-05-21 14:56 | NURSING ---
1350; Report called to Loni on RN on MS3. Pt transferred to 321 via .
[2022-05-21] MEDS: Acetaminophen 325 MG Tablet 650 MG PO (20:24)
[2022-05-21] MEDS: tiZANidine HCl 2 MG Tablet 4 MG PO (22:51)
[2022-05-22 02:41] VITALS: BP 106/76; PULSE 81; RESP 16; TEMP 36.9; O2SAT 98
[2022-05-22] MEDS: Phenobarbital 32.4 MG Tablet 64.8 MG PO ×2 (02:42→08:37)
[2022-05-22] MEDS: cloNIDine HCl 0.1 MG Tablet PO (02:48)
[2022-05-22] MEDS: Buprenorphine HCl 2 MG TAB.SUBL SL (06:43)
[2022-05-22 08:30] VITALS: BP 110/70; PULSE 88; RESP 18; TEMP 36.7; O2SAT 97
[2022-05-22] MEDS: Thiamine Hydrochloride 100 MG Tablet PO (08:37)
[2022-05-22] MEDS: Folic Acid 1 MG Tablet PO (08:37)
[2022-05-22] MEDS: Amox/Clavulanate 875 MG Tablet PO (08:41)
[2022-05-22] MEDS: Albuterol 2.5 MG/3 ML VIAL.NEB. INHALATION (08:50)
[2022-05-22 08:51] VITALS: PULSE 82; RESP 17; O2SAT 97
--- NOTE | 2022-05-22 09:52 | DCINST_ITS ---
Discharge Instructions Diet Discharge Diet: No restrictions Activity Discharge Activity: Return to Normal Activity Dressing / Incision Call your doctor if you observe: Fever of 101 or Higher, Shortness of breath, Dizziness, Fainting spells, Swelling in the ankles, Chest pain and Increased palpitations (irregular heartbeat) Follow Up Care Test Results: Test results from this visit will be discussed in further detail at your follow- up appointment, if applicable. Discharge Plan Admission Admit Date/Time: 05/19/22 04:41 Attending Provider: Sandip Sidhu Primary Care Provider: Bibi Mcclure Primary Consulting Providers: Mamadou Carpenter Discharge Orders/Prescriptions Prescriptions: New amoxicillin-pot clavulanate 875-125 mg Tablet 875 mg PO BID 3 Days Qty: 6 0RF Continued tizanidine [Zanaflex] 4 mg Tablet 4 mg PO QHS gabapentin 800 mg Tablet 800 mg PO TID albuterol 90 mcg/actuation Aerosol 90 mcg INHALATION Q4H PRN PRN (Reason: SOB) Referrals / Follow Up: Care Physician,Bibi Primary [Primary Care Provider] - Within 1 Week Disposition Disposition (needs filled in before D/C Order can be placed): Home, Self Care
--- NOTE | 2022-05-22 10:26 | DS.PCM_ITS ---
Providers Date of Admission: 05/19/22 Primary Care Physician: No Primary Care Phys Reason For Visit: DESIRE FOR DETOXIFICATION Diagnosis Discharge Diagnosis (1) Desire for detoxification: Status: Acute (2) Alcohol dependence: Status: Inactive Code(s): F10.20 - Alcohol dependence, uncomplicated (3) Opiate dependence: Status: Inactive Code(s): F11.20 - Opioid dependence, uncomplicated (4) Pneumonia: Status: Acute Code(s): J18.9 - Pneumonia, unspecified organism Plan 1. Alcohol withdrawal and opiate withdrawal/tobacco abuse ? Continue with the alcohol and opiate withdrawal protocol ? We will have him meet with 180 to discuss outpatient detox management ? Discussed cessation, continue with nicotine patch 2. Right upper lobe pneumonia ? No white count, he remains afebrile and no obvious cough ? He is continued on Augmentin and azithromycin DVT: Ambulation Medications at Discharge Home Medications gabapentin 800 mg tablet 800 mg PO TID neuropathy 01/24/21 tizanidine 4 mg tablet (Zanaflex) 4 mg PO QHS muscle spasms 01/24/21 albuterol 90 mcg/actuation aerosol inhaler 90 mcg inhalation Q4H PRN PRN SOB 04/19/22 amoxicillin 875 mg-potassium clavulanate 125 mg tablet 875 mg PO BID 3 days #6 tabs 05/22/22 Hospital Course Operations None Procedures None Summary of Care Provided Minutes Spent on Discharge: 38 Hospital Course: Per HPI: IRIS CLARK, is a 31 M with a significant history of alcoholism and opioid abuse who presented to the emergency department for detoxification.? Of note patient presented with his fianc? and his fianc?e's father. Alcoholism: Patient splits 1/5 of hard liquor with his fianc? daily. In addition he drinks about 5-6 tall boys per day.? Last time he drank was few hours before presentation.? Reportedly all in all he has been drinking about 14 to 15 years.? He had a period of about a year and a half sobriety. Opioid use: Reportedly he has been using fentanyl.? He shoots the fentanyl.? He uses about a gram each day.? Last time he used fentanyl was several hours before presentation.? He has been using since 2019.? He had a brief period of sobriety for about 5 years.? He relapsed about 9 months ago. Marijuana use: Also patient smokes marijuana. At the emergency department he complained of some shortness of breath and a productive cough of greenish to yellowish sputum. Of note patient was at our hospital ([facility]) for detoxification on 04/19/2022 and he was discharged on 04/22/2022. Hospital Course: 1. Alcohol withdrawal and opiate withdrawal/tobacco abuse?31-year-old male presents with recurrent desire for detox from alcohol and opiates. He did nena ate the opiate withdrawal protocol for the last 2 days as well as his alcohol withdrawal protocol. He is feeling much better today and would like to go home. Both his girlfriend and his girlfriend's father are here undergoing rehab as well and he wanted to wait until both of them were discharged. I discussed with him the plan for discharge today he expressed understanding of the risk benefits of going home and he would like to go home today. He states that he does not want to go to an inpatient rehab unit at the moment because he has a lot of responsibilities as to take care of first. 2. Right upper lobe pneumonia?he completed a course of azithromycin and he will need 3 more days of Augmentin. Physical Exam Narrative General: Alert, Oriented x3, Cooperative, No apparent distress HEENT: Atraumatic, PERRLA, EOMI, Normocephalic Oral: Moist Mucosa Neck: Supple, No JVD Lungs: Clear to auscultation, Normal air movement, No rhonchi, No wheeze, No rales Cardiovascular: Regular rate, Regular Rhythm, Normal S1, Normal S2, No murmurs Abdomen: Soft, Non Tender, Non-Distended, No Hepato-splenomegaly Extremities: No edema, Capillary Refill Less than 3 Seconds Skin: No rashes, No breakdown Musculoskeletal: No Tenderness to Palpation of Joints or Extremities Neurological: Cranial nerves II-XII grossly intact, Motor Exam 5/5 strength throughout, Sensory exam intact to light touch and pain Psych/Mental Status: Normal Affect, Appropriate Medical Records Data Medical Nutrition Assessment Dietitian: Malnutrition Criteria Met Start: 05/19/22 10:19 Freq: Status: Active Protocol: Document 05/19/22 10:19 AG (Rec: 05/19/22 10:19 AG [id number]) Nutrition Malnutrition Evidence of Malnutrition Exists Yes Malnutrition (severe): Chronic Evidenced By Suboptimal Energy Intake ( Severe),Weight Loss (Severe) Clinical Problem Chronic Disease or Condition Related Malnutrition Etiology severe, chronic malnutrition related to inadequate protein/ energy intake in context of substance abuse Signs/Symptoms as evidenced by unintentional wt loss of 8.4#/6.5% x 1 month ; estimated PO intake meeting <75% of estimated energy needs x 1 month; BMI 18.9 Status Active Problem Recommendation Dietitian Recommendations/Changes regular diet; will add ensure compact TID w/ meals for additional calories/protein if consumed given signs/symptoms of malnutrition Weight / BMI Weight Weight: 120 lb 13.013 oz Body Mass Index (BMI) 18.9 ABG / Lab / Microbiology Data Result Diagrams: 05/19/22 03:20 05/19/22 03:20 Microbiology: Microbiology 05/19/22 03:08 Nasal Secretion SARS-CoV-2 & FLU Antigen (Rapid) - Final D/C Instructions Discharge Diet: No restrictions Call your doctor if you observe: Fever of 101 or Higher, Shortness of breath, Dizziness, Fainting spells, Swelling in the ankles, Chest pain and Increased palpitations (irregular heartbeat) Meaningful Use Info Meaningful Use Diagnoses (Choose all that apply): None applicable Discharge Plan Admission Admit Date/Time: 05/19/22 04:41 Attending Provider: Sandip Sidhu Primary Care Provider: Care Physician,No Primary Consulting Providers: Mamadou Carpenter Discharge Orders/Prescriptions Prescriptions: New amoxicillin-pot clavulanate 875-125 mg Tablet 875 mg PO BID 3 Days Qty: 6 0RF Continued tizanidine [Zanaflex] 4 mg Tablet 4 mg PO QHS gabapentin 800 mg Tablet 800 mg PO TID albuterol 90 mcg/actuation Aerosol 90 mcg INHALATION Q4H PRN PRN (Reason: SOB) Referrals / Follow Up: Care Physician,No Primary [Primary Care Provider] - Within 1 Week Disposition Disposition (needs filled in before D/C Order can be placed): Home, Self Care Charges/Coding Visit Charges Inpatient E&M: 93868 Disch Hosp
[2022-05-22 13:40] VITALS: BP 119/75; PULSE 71; RESP 16; TEMP 36.5; O2SAT 97
[2022-05-22] MEDS: Acetaminophen 325 MG Tablet 650 MG PO (13:44)
== END 2022-05-22 13:55 | disposition home or self-care (01) ==
LOC: ED 04:38 → ICU 07:08 → MS3 05-22 09:54 → ICU 06-02 10:51
PROVIDERS: Admitting Provider Hospitalist; Emergency Provider Emergency Medicine; Visit Provider Family Medicine
DX: F10.239 Alcohol dependence with withdrawal, unspecified (principal); E43 Unspecified severe protein-calorie malnutrition; F11.23 Opioid dependence with withdrawal; J18.9 Pneumonia, unspecified organism; F17.210 Nicotine dependence, cigarettes, uncomplicated; F12.10 Cannabis abuse, uncomplicated; G89.29 Other chronic pain; Z68.1 Body mass index [BMI] 19.9 or less, adult
CPT/HCPCS: 71046; 80053; 80307; 81001; 82077; 83690; 85025; 87428; 94640; 99251; 99285; 99406; H0012; A4216; G0463